=== PATIENT | female | born 1945 | race Caucasian/White ===

== ENCOUNTER 2017-03-30 09:55 | Outpatient (CLI) | payer MEDICARE ==
--- NOTE | 2017-03-30 11:06 | RAD ---
RIGHT SHOULDER THREE VIEWS: Clinical history: Pain. FINDINGS: There is moderate osteoarthritis of the right AC joint. No fracture or dislocation. There is vascula r calcification. IMPRESSION: Osteoarthritis. No acute fracture or dislocation. POS: [facility]
== END 2017-03-30 09:56 | disposition home or self-care (01) ==
LOC: RAD-FRANK 09:55
PROVIDERS: ATTEND Nurse Practitioner Family
DX: M25.511 Pain in right shoulder (principal); M19.011 Primary osteoarthritis, right shoulder

== ENCOUNTER 2017-05-11 14:01 | Inpatient (IN) | payer MEDICARE ==
[2017-05-11] MEDS ORDERED: Pantoprazole 40 MG VIAL ONE (14:44)
[2017-05-11 14:56] LABS: Anion Gap 9 mmol/L (-14-95); Lactate 2.62 mmol/L (0.50-2.20); POC Est. GFR-MDRD-African-Amer Greater than 60 (2-60); POC Estimated GFR-MDRD Greater than 60 (2-60); T. Carbon Dioxide 29.2 mmol/L (1.0-85.0); pH (Venous) 7.311 (7.35-7.45); vO2 Saturation-calc 29.9 % (0.0-100.0)
[2017-05-11] MEDS ORDERED: Pantoprazole 80 MG in Sodium Chloride 0.9% 100 ML IVP SCH (15:00)
[2017-05-11 15:05] LABS: Hematocrit 30.1 % (36.0-47.0); Mean Platelet Volume 7.9 fL (7.4-10.4); PTT 26.5 SEC (22.9-36.1); Prothrombin Time 14.9 SEC (12.0-14.7); Red Blood Cell (RBC) Count 3.02 mill/uL (4.20-5.40)
--- NOTE | 2017-05-11 15:10 | RAD ---
PORTABLE CHEST ONE VIEW: Date: 05-11-17 Time: 2:42 p.m. History: Dyspnea, cough. FINDINGS: Comparison is made with exam of 03-06-17. The heart size is normal. Lungs are expanded without focal areas of consolidation, pneumothorax or pl eural effusions. IMPRESSION: No acute process. POS: [facility]
[2017-05-11 15:19] LABS: ALT (SGPT) Less than 7 U/L (8-55); AST (SGOT) 10 U/L (5-34); Alkaline Phosphatase 47 U/L (40-150); Anion Gap 9 mmol/L (10-20); BUN (Urea Nitrogen) 32 mg/dL (9.8-20.1); Bilirubin, Total 0.3 mg/dL (0.2-1.2); Calc. Creatinine Clearance 0 mL/min (70-130); Carbon Dioxide 27 mmol/L (23-31); Chloride 109 mmol/L (98-107); Estimated GFR-MDRD 86; Globulin 1.6 g/dL (2.4-3.5); Lipase 23 U/L (8-78); Protein, Total 4.4 g/dL (6.0-8.3)
[2017-05-11 15:23] LABS: Band 7 % (5-11); Neutrophil 82 % (42-75); Ovalocytes SLIGHT = 2-5 cells (100X) (0-1/hpf); Polychromasia SLIGHT = 2-3 cells (100X) (0-2/hpf); Troponin I Less than 0.010 ng/mL (< 0.028)
[2017-05-11] MEDS ORDERED: Piperacillin/Tazobactam 3.375 GM in Sodium Chloride 0.9% 100 ML IVPB ONE (17:30)
[2017-05-11] MEDS ORDERED: Propofol 200 MG/20 ML VIAL ONE (18:12)
[2017-05-11] MEDS ORDERED: Succinylcholine Chloride 20 MG/ML 10 ml SYRINGE FS ONE (18:12)
[2017-05-11] MEDS ORDERED: Lidocaine 1% PF 5 ML VIAL ONE (18:12)
--- NOTE | 2017-05-11 18:34 | CON ---
DATE OF CONSULTATION: 05/11/2017 HISTORY OF PRESENT ILLNESS: The patient is a 72-year-old female who was in her normal stat e of health until this morning when she awoke and felt dizzy. She apparently had a syncopal episode and was found down on the floor. She had nausea, but no vomiting. Today, she reports she started pa ssing some dark stools. According to the ER personnel, the patient also had some dark stool and red stool at the same time. The patient had a similar incident in 2014. She was seen and evaluated by Ximena Aguirre whose impression was normocytic anemia. At that time, she underwent an EGD and colonoscopy. EGD showed erosive gastritis and a 5 mm antral ulcer. Biopsies were negative for Helicobacter pylo ri. She also had duodenal biopsies which were normal. The colonoscopy showed severe diverticulosis of the left colon and moderate internal hemorrhoids. PAST MEDICAL HISTORY: Includes hypertension, hypothyroidism, skin cancer, osteoarthritis, and cerebr ovascular accident. PAST SURGICAL HISTORY: Includes appendectomy, bilateral hip replacements, back surgery, hysterectomy , cataract surgery, and endoscopy. SOCIAL HISTORY: She continues to smoke. She does not drink. FAMILY HISTORY: Negative for GI or liver disease. ALLERGIES: No known medical allergies. HOME MEDICATIONS: Include pravastatin 20 mg p.o. at bedtime, lisinopril/hydrochlorothiazide 1 p.o. d aily, Synthroid 75 mcg p.o. daily, hydrocodone 1 p.o. q.8 hours p.r.n., Cymbalta 2 p.o. daily, aspiri n 81 mg p.o. daily, alprazolam p.r.n. REVIEW OF SYSTEMS: Constitutional: No fever or chills, no weight loss. Eyes: No blurred vision or double vision. ENT: No sore throat or earaches. Cardiovascular: No chest pain, no palpitations. Positive for syncope. Pulmonary: No shortness of breath, cough or wheezing. Gastrointestinal: Se e above. : No hematuria or dysuria. Musculoskeletal: Positive for generalized weakness. Negati ve for joint pain. Skin: No rashes. Neurologic: No numbness or seizure activity. PHYSICAL EXAMINATION: VITAL SIGNS: Show a blood pressure 104/87, pulse of 95, respiratory rate 16, temperature she is afeb rile. HEENT: Unremarkable. NECK: Supple. CHEST: Clear. CARDIOVASCULAR: Regular rate and rhythm. ABDOMEN: Soft, nontender, without organomegaly or masses. Bowel sounds are present. RECTAL: Deferred. EXTREMITIES: Normal. NEUROLOGIC: Nonfocal. LABORATORY: Shows a hemoglobin of 9.6, hematocrit of 30.1 with a white blood cell count 23.0, platel et count is 278. Her previous hemoglobin was 13.1 in February. PT is 14.9 with an INR of 1.2. Irina mistries show chloride 109, BUN 32, glucose 114, ALT less than 7, albumin 2.8. ASSESSMENT: 1. Upper gastrointestinal bleed. 2. Syncope secondary to #1. 3. Anemia secondary to gastrointestinal blood loss. 4. History of antral ulcer with gastrointestinal bleed. 5. Osteoarthritis, previously on nonsteroidal anti-inflammatory drugs. 6. History of cerebrovascular accident. RECOMMENDATIONS: 1. PPI. 2. EGD. 3. Serial H&H. 4. Transfuse.
[2017-05-11] MEDS ORDERED: Promethazine HCl 25 MG/ML VIAL SLOW IVP PRN (18:40)
[2017-05-11] MEDS ORDERED: Ondansetron HCl/PF 4 MG/2 ML Vial IVP PRN ×2 (18:40→20:22)
[2017-05-11] MEDS ORDERED: Fentanyl 100 MCG/2 ML VIAL ONE (18:50)
[2017-05-11] MEDS ORDERED: Albuterol Sulfate 2.5 mg/3 ml Neb NEB PRN (18:59)
--- NOTE | 2017-05-11 19:02 | OP ---
PREOPERATIVE DIAGNOSIS: Upper gastrointestinal bleed. PROCEDURE: After informed consent was obtained, she was placed in the left lateral decubitus positio n. Anesthesia was administered per the Anesthesia Department. Forward-viewing endoscope was inserte d into the esophagus under direct visualization with ease where the large amount of blood was noted i n the stomach and the scope was withdrawn, lying in Anesthesia Department to intubate the patient. O nce that was performed, the patient was placed in the left lateral decubitus position and the scope w as inserted into the esophagus under direct visualization with ease and passed to the second portion of the duodenum with ease. Second portion of the duodenum and duodenal bulb were normal. Pylorus wa s normal. In the prepyloric antrum, a large ulcer was noted. In this ulcer where 2 visible vessels. The ulcer was first injected in 4 quadrant fashion with 1:10,000 epinephrine achieving good hemosta sis. Then, the visible vessels were ablated with a 10-Surinamese BICAP electrocautery probe. The full v isualization of the stomach was not achieved secondary to a large amount of blood in the stomach. ASSESSMENT: Large antral ulcer with 2 visible vessels -- status post sclerotherapy and BICAP electro cautery. RECOMMENDATIONS: 1. IV continuous infusion PPI. 2. Clear liquids. 3. Serial H&H.
[2017-05-11 19:04] LABS: Bilirubin Negative (Negative); Blood, Urine Moderate (Negative); Glucose, Urine (Dipstick) Negative (Negative); Ketone, Urine Negative (Negative); Nitrite Negative (Negative); Protein, Urine (Dipstick) Negative (Neg-Trace); Urobilinogen 0.2 mg/dL (0.2-1.0)
[2017-05-11 19:07] LABS: Hyaline Casts/LPF 4-6 HYALINE CAST LPF (0-3 Hyaline); RBC/HPF 0-3 HPF (0-3); WBC/HPF 21-50 HPF (0-3)
[2017-05-11 19:24] LABS: Bacteria/HPF Rare-Few HPF (None Seen); Squamous Epithelial 0-3 HPF (0-3); Transitional Epithelial 0-3 HPF (0-3); Yeast-All Forms None Seen HPF (None Seen)
[2017-05-11] MEDS ORDERED: Ondansetron ODT 4 MG TAB SL PRN (20:22)
[2017-05-11] MEDS ORDERED: Acetaminophen 325 MG TAB PO PRN (20:22)
[2017-05-11] MEDS ORDERED: Pantoprazole 80 MG in Sodium Chloride 0.9% 100 ML IVPB SCH (20:30)
[2017-05-11] MEDS ORDERED: Bisacodyl 5 MG TAB PO PRN (21:52)
[2017-05-11] MEDS ORDERED: Ondansetron ODT 4 MG TAB PO PRN (21:52)
[2017-05-11] MEDS ORDERED: Guaifenesin DM 100-10/5 ML UDCUP PO PRN (21:52)
[2017-05-11] MEDS ORDERED: Docusate 100 MG CAP PO SCH (22:00)
[2017-05-11] MEDS ORDERED: Piperacillin/Tazobactam 3.375 GM in Sodium Chloride 0.9% 100 ML IVPB SCH (22:15)
--- NOTE | 2017-05-11 22:17 | HP ---
PRIMARY CARE PHYSICIAN: Maryjane Vigil PROVIDER SCRIBE CHIEF COMPLAINT: Weakness. HISTORY OF PRESENT ILLNESS: This is a 72-year-old white female with a past medical history of hypert ension, hypothyroidism, previous GI bleed, diverticulosis, internal hemorrhoids and esophageal spasm, who presents to the emergency room with 3-day history of weakness. She just felt kind of bad for th e last 2-3 days, then this morning she started feeling significantly weak right after she took her ba th. She was barely able to stand up. She went took a nap and within about an hour to 2 hour she was not able to stand at all. She crawled across the floor and because she felt like she needed to go t o the bathroom, she was not able to get her pants down, so EMS was called. The patient also reports that over the past 2-3 days she has had burning mid epigastric pain on and off. It was persistent du ring the day today and that she had nausea along with the bowel movement at home. When EMS arrivedsh e was found to be hypotensive. She was given IV fluids and brought to the emergency room. Her blood pressure dropped again in the emergency room, she was given more IV fluids and started on a unit of packed red blood cells. The patient was found to have black and reddish bowel movement in her cloths . Her blood count was also found to be low at 9. It was [address] just [address] Barreto has been co nsulted by the emergency room. The patient was also noted to have an increased white blood cell coun t of 23,000 with a neutrophilic predominance of 82% bands. The patient does have a history of previo us GI bleed when she was taking a bunch of ibuprofen or Advil in the past; however, now she is just o n a daily aspirin for her recent stroke. PAST MEDICAL HISTORY: 1. Hypothyroidism. 2. Previous gastrointestinal bleed. 3. Hypertension. 4. Depression. 5. Esophageal spasm. 6. Diverticulosis. 7. Internal hemorrhoids. 8. Acute CVA in 02/2017. PAST SURGICAL HISTORY: 1. Skin cancer removal from her face. 2. Appendectomy. 3. Orthopedic bilateral hip replacement surgery. 4. Back surgery. 5. Hysterectomy. SOCIAL HISTORY: The patient previously drank heavily liquor, but has not drank much at all in the ia st 7-8 years. She smokes 1/2 pack per day and has done so for the last 40 years. No illicit drug us e. ALLERGIES: 1. DEMEROL. 2. SULFA causes lip and tongue swelling. 3. HONEY BEE VENOM. CURRENT MEDICATIONS: 1. Pravastatin 20 mg daily. 2. Aspirin 81 mg daily. 3. Lisinopril/hydrochlorothiazide 10/12.5 mg daily. 4. Synthroid 25 mcg daily. 5. Cymbalta 30 mg twice a day. 6. Xanax 0.25 mg twice a day. 7. Tylenol with codeine as needed for pain. PAST PSYCHIATRIC HISTORY: Depression. FAMILY HISTORY: Testicular cancer in her father and bleeding problem in her mother when she was on a nti-arthritic medications. REVIEW OF SYSTEMS: Constitutional: No fevers, no chills, no weight loss. Eyes: No double vision or blurred vision. E NT: She has had some congestion, drainage, and sore throat, was on CPAP for this over a week ago; ho wever, she has had persistent congestion and drainage. Cardiovascular: No chest pain, no palpitatio ns or racing heart. Pulmonary: She has some cough and little coughing and wheezing. This is worse with her recent URI, but it is fairly common for her with her smoking. Gastrointestinal: See HPI. No vomiting, no hematemesis. Genitourinary: No dysuria or hematuria. Musculoskeletal: No generali zed muscle aches. She does have some chronic right shoulder pain and some chronic low back pain and SI joint pain. Skin: No rashes or other lesions noted. Neurologic: No numbness, tingling or focal weakness. She did have some weakness of her left arm and numbness with her previous stroke; however , those symptoms was almost completely resolved. PHYSICAL EXAMINATION: VITAL SIGNS: Blood pressure initially 140/113 on presentation, it did drop down to 84/59, during the time she was in the ER has jumped back up to 116/60 with blood and fluid transfusion. Pulse has bee n running in the high 90s to low 100s, temperature 97.4, respirations 20, O2 sat 97% on room air. GENERAL: This is a well-developed, obese white female in no acute distress, she just looks pale. HEENT: Pupils equal, round, and reactive to light. Oropharynx is clear, without lesions, erythema o r exudate. NECK: Supple, no lymphadenopathy, no thyroid nodules or enlargement, no JVD. HEART: Regular rate and rhythm, minimally tachycardic at this time. No murmurs, rubs or gallops. LUNGS: Clear to auscultation bilaterally, no wheezes, crackles or rhonchi. ABDOMEN: Soft, nontender to palpation, normoactive bowel sounds, no hepatosplenomegaly or other mass es. EXTREMITIES: No clubbing, cyanosis or edema. SKIN: No rashes or other lesions noted. NEUROLOGIC: She has intact strength and reflexes in all extremities and has no facial droop. LABORATORY DATA: CBC initially with a white blood cell count of 23,000, hemoglobin of 9.6, hematocri t 30.1, MCV of 99.6, neutrophils are 82%, and bands are 7%. Coagulation profile with PT of 14.9, the rest is normal. Venous blood gas showed a pH of 7.3 and a complete metabolic panel was notable for a chloride of 109, anion gap low at 9 and BUN of 32, creatinine was normal at 0.67, glucose was 114, albumin was low at 2.8. The remainder of her liver function tests were normal. Cardiac marker set n egative x1, venous lactate was elevated at 2.62. X-ray: I did review the chest x-ray done in the emergency room along with the radiologist's report. There is a normal cardiac silhouette, no infiltrates in the lungs. No acute cardiopulmonary process visualized. ASSESSMENT AND PLAN: 1. Sepsis with hypotension. The patient has elevated white cell count and also has tachycardia and hypotension. This is concerning for possibility of infection. Thus far we did have an etiology, alt courtney we do not have a urine back yet, we will have to cath her to get one if she cannot urine force. The elevated white count might also be a stress reaction due to a GI bleed and hypotension be solel y due to that. At this time, we will investigate for and treat both causes. We will start her on Zo syn and vancomycin here in the emergency room, draw blood and urine cultures before that goes in. We will also check a urinalysis for urinary tract infection. Patient will continue getting IV fluids a nd has gotten blood and we will no more blood as needed. We will check serial H&Hs. Dr. Barreto has se en her and is planning on doing an EGD. 2. Gastrointestinal bleed. We will put on Protonix drip. We will get an EGD per Dr. Barreto. We will also transpose blood as needed. 3. Tobacco use with likely early chronic obstructive pulmonary disease and will give nebs as needed. Recommend tobacco cessation. 4. Gastrointestinal prophylaxis. Patient is already on Protonix. 5. Deep venous thrombosis prophylaxis. Put the patient on sequential compression devices and TEDs w hile in bed. 6. Hypertension. The patient is currently hypotensive. We will keep an eye on her blood pressure, and once she is fluid repleted, she may become hypertensive at which point we can resume her home blo od pressure medications. 7. Chronic pain. We will resume patient's Tylenol with codeine. CODE STATUS: I did discuss with the patient. She is a FULL CODE. Should she be incapacitated, her sons, Nicolás and Amilcar would be her medical power of real estate attorney.
[2017-05-11 23:28] VITALS: BMI 29.0
[2017-05-11] MEDS: Sodium Chloride 0.9% 1,000 ML IV SCH (23:43)
[2017-05-12] MEDS: Pantoprazole 80 MG in Sodium Chloride 0.9% 100 ML IVP SCH ×3 (00:09→21:08)
[2017-05-12] MEDS ORDERED: Piperacillin/Tazobactam 3.375 GM in Sodium Chloride 0.9% 100 ML IVPB SCH (04:00)
[2017-05-12 04:50] LABS: #Basophils 0.1 thou/uL (0.0-0.2); #Monocytes 0.7 thou/uL (0.11-0.59); #Neutrophils 6.5 thou/uL (1.40-6.50); %Basophils 0.8 % (0.0-1.0); %Eosinophils 0.4 % (0.0-10.0); %Lymphocytes 29.2 % (21.0-51.0); %Monocytes 6.8 % (0.0-10.0); Hematocrit 28.4 % (36.0-47.0); Mean Platelet Volume 8.2 fL (7.4-10.4); Red Blood Cell (RBC) Count 2.87 mill/uL (4.20-5.40); White Blood Cell (WBC) Count 10.4 thou/uL (4.8-10.8)
[2017-05-12] MEDS ORDERED: Vancomycin HCl 1 GM in Premix Bag 1 BAG IVPB SCH (05:00)
[2017-05-12 05:01] LABS: Anion Gap 8 mmol/L (10-20); BUN (Urea Nitrogen) 38 mg/dL (9.8-20.1); Calc. Creatinine Clearance 92 mL/min (70-130); Calcium 8.3 mg/dL (7.8-10.44); Carbon Dioxide 23 mmol/L (23-31); Chloride 113 mmol/L (98-107); Estimated GFR-MDRD Greater than 90
[2017-05-12] MEDS: Piperacillin/Tazobactam 3.375 GM in Sodium Chloride 0.9% 100 ML IVPB SCH ×2 (06:09→11:44)
[2017-05-12] MEDS: Docusate 100 MG CAP PO SCH ×2 (08:03→21:03)
[2017-05-12] MEDS: Sodium Chloride 0.9% 1,000 ML IV SCH ×2 (11:44→11:52)
[2017-05-12] MEDS ORDERED: cefTRIAXone\\ROCEPHIN 1 GM in Sodium Chloride 0.9% 100 ML IVPB SCH (12:00)
--- NOTE | 2017-05-12 12:41 | PQF ---
DATE: 05-12-17 ATTN: DR. JOSI COOK Please exercise your independent, professional judgment in responding to the clarification form. Clinical indicators are provided on the bottom of this form for your review Please check appropriate box(s): [ *] Acute blood loss anemia [ ] Post-op anemia related to acute blood loss [ ] Chronic Anemia: [ ] Blood loss [ ] Hemolytic [ ] Simple [ ] Due to Vitamin B12 Deficiency [ ] Other [ ] Anemia of Chronic Disease (please specify) [ ] Other diagnosis [ ] Unable to determine In addition, please specify: Present on Admission (POA): [ ] Yes [ ] No [ ] Unable to determine For continuity of documentation, please document condition throughout progress notes and discharge summary. Thank You. CLINICAL INDICATORS - SIGNS / SYMPTOMS / LABS ER CHIEF COMPLAINT: HYPOTENSION ER DOCUMENTATION: 83/56, 93/56, 84/59, 83/63 ER DIAGNOSIS: GI BLEED CONSULT NOTE DR. YA 05-11-17: ANEMIA SECONDARY TO GI BLOOD LOSS HEMOGLOBIN 05-11-17: 9.6 HEMATOCRIT: 05-11-17: 30.1 05-12-17: 9.2 05-12-17: 28.4 RISK FACTORS: ER DIAGNOSIS: GI BLEED EGD 05-11-17 TREATMENTS: CONSULT NOTE DR. YA 05-11-17: PPI, EGD, SERIAL H&H, TRANSFUSE BLOOD PRODUCTS 05-11-17: 1 UNIT OF PRBC This form is maintained as a part of the permanent medical record) 2014 [facility]. All Rights Reserved [email or web address] Office: [phone] [facility]
[2017-05-12 12:52] LABS: Hematocrit 29.9 % (36.0-47.0)
[2017-05-12 13:11] LABS: Anion Gap 11 mmol/L (10-20); BUN (Urea Nitrogen) 28 mg/dL (9.8-20.1); Calc. Creatinine Clearance 80 mL/min (70-130); Calcium 8.3 mg/dL (7.8-10.44); Carbon Dioxide 22 mmol/L (23-31); Chloride 111 mmol/L (98-107); Estimated GFR-MDRD 80
[2017-05-12] MEDS: cefTRIAXone\\ROCEPHIN 1 GM, Syringe 0.4 ML in Sterile Water 9.6 ML SLOW IVP SCH (13:24)
--- NOTE | 2017-05-12 14:38 | PDOC.PN ---
- Subjective Encounter Start Date: 05/12/17 Encounter Start Time: 14:38 pt had bloody bm no n/v no f/c - Objective Resuscitation Status: Resuscitation Status FULL:Full Resuscitation MAR Reviewed: Yes Vital Signs & Weight: Vital Signs (12 hours) Temp Pulse Resp BP BP BP Pulse Ox 05/12/17 11:15 112/66 120/69 05/12/17 11:12 98.7 F 111 H 16 112/66 96 05/12/17 08:00 99.1 F 111 H 18 95 05/12/17 07:28 99.1 F 111 H 18 115/74 100 05/12/17 03:19 99.2 F 106 H 18 126/66 97 Weight Weight 160 lb I&O: 05/11/17 05/12/17 05/13/17 06:59 06:59 06:59 Intake Total 2590 Output Total 1304 Balance 1286 Result Diagrams: 05/12/17 12:43 05/12/17 12:43 Phys Exam - Physical Examination Constitutional: NAD HEENT: PERRLA Neck: no JVD Respiratory: no rales Cardiovascular: no significant murmur Gastrointestinal: non-tender Musculoskeletal: pulses present Neurological: normal sensation Psychiatric: A&O x 3 Dx/Plan (1) UTI (urinary tract infection) Status: Acute (2) Physical deconditioning Code(s): R53.81 - OTHER MALAISE Status: Acute (3) HTN (hypertension) Code(s): I10 - ESSENTIAL (PRIMARY) HYPERTENSION Status: Acute (4) CVA (cerebral vascular accident) Code(s): I63.9 - CEREBRAL INFARCTION, UNSPECIFIED Status: Acute Qualifiers: Laterality of affected vessel: right (5) GI bleed Code(s): K92.2 - GASTROINTESTINAL HEMORRHAGE, UNSPECIFIED Status: Acute (6) Hypothyroidism Code(s): E03.9 - HYPOTHYROIDISM, UNSPECIFIED Status: Chronic - Plan * iv protonix * monitor h/h * transfuse as needed * cont abx, monitor urine cul * gi input appreciated
--- NOTE | 2017-05-12 15:22 | PQF ---
DATE: 05-12-17 ATTN: DR. JOSI MENESES Please exercise your independent, professional judgment in responding to the clarification form. Clinical indicators are provided on the bottom of this form for your review Please check appropriate box(s): [ ] Upper Gastrointestinal Ulcer: Acuity: [ ] Acute [ ] Chronic [ ] Hemorrhage -or-[ ] No Hemorrhage Type:[ ] Gastric Ulcer pt has gastric ulcer (antral) which is acute [ ] Esophageal Ulcer [ ] Duodenal, Duodenum [ ] Other location [ ] Any related or contributing disease(s) Alcohol or drugs: [ ] Other diagnosis [ ] Unable to determine In addition, please specify: Present on Admission (POA): [ * ] Yes [ ] No [ ] Unable to determine For continuity of documentation, please document condition throughout progress notes and discharge summary. Thank You. CLINICAL INDICATORS - SIGNS / SYMPTOMS / LABS H&P: PATIENT ALSO REPORTS THAT OVER THE PAST 2-3 DAYS SHE HAS HAD BURNING MID EPIGASTRIC PAIN OFF AND ON. SHE HAS HAD NAUSEA, PT WAS FOUND TO HAVE BLACK AND REDDISH BOWEL MOVEMENTS IN HER CLOTHS. PREVIOUS GI BLEED OPERATIVE NOTE 05-11-17: IN THE PREPYLORIC ANTRUM, A LARGE ULCER WAS NOTED. IN THIS ULCER WHERE 2 VISIBLE VESSELS. THE ULCER WAS FIRST INJECTED IN 4 QUADRANT FASHION WITH 1:10,000 EPI ACHIEVING GOOF HEMOSTASIS. THEN THE VISIBLE VESSELS WERE ABLATED WITH A 10-KAZAKH BICAP ELECTROCAUTERY PROBE. RISK FACTORS: H&P: PATIENT ALSO REPORTS THAT OVER THE PAST 2-3 DAYS SHE HAS HAD BURNING MID EPIGASTRIC PAIN OFF AND ON. SHE HAS HAD NAUSEA, PT WAS FOUND TO HAVE BLACK AND REDDISH BOWEL MOVEMENTS IN HER CLOTHS. PREVIOUS GI BLEED H&P: PATIENT PREVIOUSLY DRANK HEAVILY LIQUOR, BUT HAS NT DRANK MUCH AT ALL IN THE LAST 7-8 YRS. TREATMENT: EGD 05-11-[address] YA 05-11-17: PPI, EGD, SERIAL H&H, TRANSFUSE (This form is maintained as a part of the permanent medical record) 2014 [employer]. All Rights Reserved [email or web address] Office: [phone] [facility]
[2017-05-12] MEDS: Acetaminophen 325 MG TAB PO PRN ×2 (18:23→22:25)
[2017-05-12] MEDS: Cepastat Lozenges 1 LOZ PO PRN (18:23)
--- NOTE | 2017-05-12 18:53 | CON ---
DATE OF CONSULTATION: 05/12/2016 SERVICE: Pulmonary Medicine. REASON FOR CONSULTATION: [facility] patient. HISTORY OF PRESENT ILLNESS: The patient is a 72-year-old white female with past medical history sign ificant for peptic ulcer disease. She was on PPI for a period of time. It was discontinued at some point in the past and she does not exactly remember why. Either way, she presented to the hospital w ith some abdominal discomfort, and black tarry sticky stools. Her hemoglobin at that time was 9.6. She currently denies any fevers, chills, nausea, vomiting or chest discomfort. She has got chronic p ain and takes some Tylenol with some narcotic attached to it. She is not currently using any nonster oidal anti-inflammatory drugs based on what she suggests. PAST MEDICAL HISTORY: 1. Peptic ulcer disease. 2. Chronic obstructive pulmonary disease, possible. 3. Hypothyroidism. 4. Hypertension. 5. Major depressive disorder. 6. Diverticulosis. 7. Internal hemorrhoids. 8. History of CVA in 2017. 9. Esophageal spasms. PAST SURGICAL HISTORY: 1. Excision of skin cancer. 2. Appendectomy. 3. Bilateral hip replacement, total. 4. Hysterectomy. 5. Back surgery. SOCIAL HISTORY: She has a history of heavy alcohol use and has a greater than [id number] history o f smoking. That being said, she no longer uses either. She denies any history of illicit drugs. Archana rodriguez has no exposure to chemicals, dust, asbestos or tuberculosis. FAMILY HISTORY: Noncontributory. ALLERGIES: DEMEROL, SULFA, HONEY BEE VENOM. MEDICATIONS: List for inpatient medications were reviewed. No specific updates were made at this ti me. REVIEW OF SYSTEMS: General, head, ears, eyes, nose, throat, cardiovascular, respiratory, GI, , mus culoskeletal, neurologic and skin is negative except as mentioned in the HPI. PHYSICAL EXAMINATION: VITAL SIGNS: Afebrile. Pulse 111, blood pressure 112/66, respirations 16, saturation 96% on 2 liter s nasal cannula. GENERAL: Patient is awake, alert, in no apparent distress. LUNGS: Excellent air entry with no prolonged expiratory phase, wheezing, rhonchi or crackles. HEART: Normal rate, regular. ABDOMEN: Soft, nontender, nondistended, bowel sounds positive. MUSCULOSKELETAL: No cyanosis or clubbing. No pitting in the bilateral lower extremities. NEUROLOGIC: Grossly nonfocal. LABORATORY: WBC 10.4, hemoglobin 9.9 and stable. Platelets 247,000. INR 1.2. PH 7.31, pCO2 of 54. Basic metabolic profile is essentially unremarkable. Previous liver function studies were also neg ative. Cardiac enzymes negative. Urinalysis is unremarkable. Blood cultures x2 are unremarkable. ASSESSMENT: 1. Acute blood loss anemia. 2. Upper gastrointestinal bleed secondary to peptic ulcer disease, status post intervention. 3. Chronic obstructive pulmonary disease, suspected without acute exacerbation. PLAN: The patient is currently hemodynamically stable. She does have a high risk lesion for rebleed. If b y tomorrow, she remains stable, she can transition out of the ICU to the medical unit. Pulmonary rob l continue to follow while she remains in this location. In the outpatient setting, for dyspnea limi ts her activity, an outpatient workup for COPD should be considered.
--- NOTE | 2017-05-12 19:25 | PRG ---
DATE OF SERVICE: 05/12/2017 SUBJECTIVE: Ms. Vanegas has had multiple black stools today. She has had diarrhea with this. She cancino s had no abdominal pain or nausea or vomiting, tolerating clear liquids well. OBJECTIVE: VITAL SIGNS: Temperature 98.2, pulse 106, blood pressure 137/84. GENERAL: She is in no acute distress, alert and oriented x3. LUNGS: Clear to auscultation bilaterally. CARDIOVASCULAR: Heart tachycardic S1, S2. ABDOMEN: Soft, nontender, nondistended. Bowel sounds are present. EXTREMITIES: No lower extremity edema. LABORATORY DATA: Her hemoglobin is 9.9 today. This is stable from yesterday afternoon. Creatinine 0.71. IMPRESSION: 1. Gastrointestinal bleed secondary to large antral ulcer, status post cautery of visible vessels. 2. Anemia of acute blood loss. Her hemoglobin has stabilized from yesterday to today. She has cont inued to pass old blood from the colon. RECOMMENDATIONS: 1. Continue proton pump inhibitor drip today. If her hemoglobin remains stable tomorrow, then she c an be changed to oral pantoprazole twice daily for 2 weeks and then back off to once daily. As the s ource for her ulcer has not been identified at this point, then she will need to remain on proton pum p inhibitor indefinitely. Her biopsies in 2014 were negative for Helicobacter pylori. A stool sampl e can be sent for Helicobacter pylori antigen to retest this. She denies NSAID use. 2. She was advised to stop smoking as this is an independent risk factor for gastric ulcer. 3. Followup endoscopy should be performed in 4-6 weeks to verify healing of the ulcer given the size of the focal gastric ulcer. 4. If her hemoglobin is stable tomorrow, advance her diet.
[2017-05-12] MEDS: ALPRAZolam 0.25 MG TAB PO PRN (20:58)
[2017-05-12 22:22] LABS: Hematocrit 26.5 % (36.0-47.0)
[2017-05-13 04:45] LABS: #Basophils 0.1 thou/uL (0.0-0.2); #Eosinphils 0.1 thou/uL (0.0-0.7); #Monocytes 0.5 thou/uL (0.11-0.59); #Neutrophils 4.8 thou/uL (1.40-6.50); %Basophils 1.1 % (0.0-1.0); %Eosinophils 1.1 % (0.0-10.0); %Lymphocytes 27.2 % (21.0-51.0); %Monocytes 6.1 % (0.0-10.0); Hematocrit 26.3 % (36.0-47.0); Hematocrit 26.6 % (36.0-47.0); Mean Platelet Volume 7.9 fL (7.4-10.4); Red Blood Cell (RBC) Count 2.67 mill/uL (4.20-5.40); White Blood Cell (WBC) Count 7.4 thou/uL (4.8-10.8)
[2017-05-13 04:56] LABS: Vancomycin, Trough 4.3 ug/mL
[2017-05-13] MEDS: Levothyroxine Sodium 25 MCG TAB PO SCH (06:29)
[2017-05-13] MEDS: Sodium Chloride 0.9% 1,000 ML IV SCH (06:29)
[2017-05-13] MEDS: Ondansetron HCl/PF 4 MG/2 ML Vial IVP PRN ×2 (06:35→18:33)
[2017-05-13] MEDS: Docusate 100 MG CAP PO SCH ×2 (08:52→20:52)
[2017-05-13] MEDS: Pantoprazole 40 MG VIAL IVP SCH ×2 (08:54→20:53)
--- NOTE | 2017-05-13 10:05 | PRG ---
DATE OF SERVICE: 05/13/2017 SERVICE: Pulmonary Medicine. INTERVAL HISTORY: The patient is doing fairly well from a respiratory standpoint. She is continuing to have some diarrhea, but it is clearing. She denies any current fevers, chills, nausea, or vomiti ng. Otherwise, she is returning to her usual state of health. She is asking to go home today, but I did explain to her that she is at high risk for re-bleed. She has not quite cleared her stools yet. It would be better for her if she were monitored in the hospital for at least 1 more day. PHYSICAL EXAMINATION: VITAL SIGNS: Afebrile, pulse 100, blood pressure 135/82, respirations 15, saturation 98% on room air . GENERAL: Patient is awake, alert, in no apparent distress. LUNGS: Decent air entry with no prolonged expiratory phase, wheezing, rhonchi, or crackles. HEART: Normal rate, regular. ABDOMEN: Soft, nontender, nondistended. Bowel sounds positive. MUSCULOSKELETAL: No cyanosis or clubbing. No pitting in the bilateral lower extremities. NEUROLOGIC: Grossly nonfocal. LABORATORY DATA: WBC 8.7, stable for the last 3 draws since last night. CBC is otherwise unremarkab le. Basic metabolic profile IS completely unremarkable with a BUN that is improving and a creatinine that is stable. Bicarbonate is 22 and chloride has improved to 111. Blood cultures x2 are unremark able. ASSESSMENT: 1. Acute blood loss anemia, stable. 2. Upper gastrointestinal bleed secondary to peptic ulcer disease, status post intervention. 3. Chronic obstructive pulmonary disease, suspected without acute exacerbation. PLAN: The patient remains hemodynamically stable. Her hemoglobins have been stable overnight. As s [facility], we can consider her for transition out of the ICU to the regular floor. Pulmonary will continue to follow if she remains in this location. Consider COPD evaluation in the outpatient setting if linda rodriguez does have some findings consistent with this.
[2017-05-13] MEDS: cefTRIAXone\\ROCEPHIN 1 GM, Syringe 0.4 ML in Sterile Water 9.6 ML SLOW IVP SCH (11:51)
--- NOTE | 2017-05-13 12:41 | PDOC.PN ---
- Subjective Encounter Start Date: 05/13/17 Encounter Start Time: 12:40 Patient seen and examined. No new complaints. No overnight events - Objective Resuscitation Status: Resuscitation Status FULL:Full Resuscitation MAR Reviewed: Yes Vital Signs & Weight: Vital Signs (12 hours) Temp Pulse Resp BP BP Pulse Ox 05/13/17 11:46 98.5 F 105 H 20 144/80 H 99 05/13/17 09:25 150/78 H 05/13/17 08:00 98.1 F 100 15 98 05/13/17 07:54 98.1 F 100 15 135/82 95 05/13/17 03:50 98.3 F 104 H 22 H 122/69 95 Weight Weight 160 lb 6.4 oz I&O: 05/12/17 05/13/17 05/14/17 06:59 06:59 06:59 Intake Total 2590 3100 Output Total 1304 2350 Balance 1286 750 Result Diagrams: 05/13/17 04:16 05/12/17 12:43 Phys Exam - Physical Examination Constitutional: NAD HEENT: PERRLA Neck: no JVD Respiratory: no rales Cardiovascular: no significant murmur Gastrointestinal: non-tender Musculoskeletal: pulses present Neurological: moves all 4 limbs Psychiatric: A&O x 3 Dx/Plan (1) UTI (urinary tract infection) Status: Acute (2) Physical deconditioning Code(s): R53.81 - OTHER MALAISE Status: Acute (3) HTN (hypertension) Code(s): I10 - ESSENTIAL (PRIMARY) HYPERTENSION Status: Acute (4) CVA (cerebral vascular accident) Code(s): I63.9 - CEREBRAL INFARCTION, UNSPECIFIED Status: Acute Qualifiers: Laterality of affected vessel: right (5) GI bleed Code(s): K92.2 - GASTROINTESTINAL HEMORRHAGE, UNSPECIFIED Status: Acute (6) Hypothyroidism Code(s): E03.9 - HYPOTHYROIDISM, UNSPECIFIED Status: Chronic (7) Diarrhea Code(s): R19.7 - DIARRHEA, UNSPECIFIED Status: Acute - Plan * check stool for c diff * monitor hh * advance diet per gi
[2017-05-13] MEDS: Cepastat Lozenges 1 LOZ PO PRN (15:37)
--- NOTE | 2017-05-13 20:55 | PRG ---
DATE OF SERVICE: 05/13/2017 SUBJECTIVE: She is tolerating a diet well today; however, she has had some nausea. Her diarrhea is better today with 4 or 5 stools today. She has had no further overt bleeding. PHYSICAL EXAMINATION: VITAL SIGNS: Temperature 98.5, pulse 105, blood pressure 144/80. GENERAL: She is in no acute distress, alert and oriented x3. LUNGS: Clear to auscultation bilaterally. HEART: Regular rate and rhythm to mildly tachycardic. ABDOMEN: Soft, nontender, nondistended. Bowel sounds are present. EXTREMITIES: No lower extremity edema. LABORATORY DATA: Hemoglobin is 10.3 today. IMPRESSION: 1. Gastrointestinal bleed secondary to a large antral ulcer, status post cautery of visible vessels. 2. Anemia of acute blood loss, improved. She does not have ongoing overt bleeding now. 3. Diarrhea. Clostridium difficile toxin was negative. Her diarrhea is better today than yesterday . RECOMMENDATIONS: 1. Pantoprazole 40 mg twice daily for 2 weeks, then come back to once daily indefinitely. She shoul d remain on proton pump inhibitor indefinitely at this point given the complicated ulcer and lack of obvious source. She has been on 81 mg aspirin and she smokes which may be the primary source; kelechi r, she may need to remain on the aspirin due to a history of TIA. It should be okay to restart the a spirin tomorrow. 2. Restart aspirin 81 mg tomorrow if deemed necessary by the primary service. It is okay to restart this from a GI perspective if the cerebrovascular, cardiovascular indications are significant. 3. Anticipate discharge home tomorrow. I will sign off for now. Please call if GI can be of assist great.
[2017-05-13] MEDS: ALPRAZolam 0.25 MG TAB PO PRN (21:12)
[2017-05-13] MEDS: Acetaminophen 325 MG TAB PO PRN (22:14)
[2017-05-13 22:15] LABS: Hematocrit 26.9 % (36.0-47.0)
[2017-05-14 04:24] LABS: #Basophils 0.1 thou/uL (0.0-0.2); #Eosinphils 0.1 thou/uL (0.0-0.7); #Lymphocytes 2.1 thou/uL (1.20-3.40); #Monocytes 0.6 thou/uL (0.11-0.59); #Neutrophils 4.2 thou/uL (1.40-6.50); %Basophils 1.1 % (0.0-1.0); %Eosinophils 1.1 % (0.0-10.0); %Lymphocytes 30.2 % (21.0-51.0); %Monocytes 8.1 % (0.0-10.0); Hematocrit 26.6 % (36.0-47.0); Mean Platelet Volume 7.6 fL (7.4-10.4); Red Blood Cell (RBC) Count 2.71 mill/uL (4.20-5.40)
[2017-05-14 04:39] LABS: Anion Gap 9 mmol/L (10-20); BUN (Urea Nitrogen) 5 mg/dL (9.8-20.1); BUN/Creatinine Ratio 7.81; Calc. Creatinine Clearance 89 mL/min (70-130); Calcium 8.4 mg/dL (7.8-10.44); Carbon Dioxide 28 mmol/L (23-31); Chloride 108 mmol/L (98-107); Estimated GFR-MDRD Greater than 90; Phosphorus 2.9 mg/dL (2.3-4.7)
[2017-05-14] MEDS ORDERED: Potassium Chloride 20 MEQ TAB PO SCH ×2 (05:00→09:00)
[2017-05-14] MEDS: Levothyroxine Sodium 25 MCG TAB PO SCH (05:29)
[2017-05-14] MEDS: Acetaminophen 325 MG TAB PO PRN (06:06)
--- NOTE | 2017-05-14 08:05 | PDOC.PN ---
- Subjective Encounter Start Date: 05/14/17 Encounter Start Time: 08:03 Ms. Vanegas was seen today in follow-up of GI bleed. She says she feels much better and wants to go home. - Objective Resuscitation Status: Resuscitation Status FULL:Full Resuscitation MAR Reviewed: Yes Vital Signs & Weight: Vital Signs (12 hours) Temp Pulse Resp BP Pulse Ox 05/14/17 04:00 98.2 F 102 H 18 133/74 93 L 05/14/17 00:58 98.4 F 109 H 18 125/82 95 Weight Weight 160 lb 0.008 oz I&O: 05/13/17 05/14/17 05/15/17 06:59 06:59 06:59 Intake Total 3100 700 Output Total 2350 Balance 750 700 Result Diagrams: 05/14/17 04:11 05/14/17 04:11 Phys Exam - Physical Examination HEENT: PERRLA Respiratory: no wheezing, no rales, no rhonchi, clear to auscultation bilateral Cardiovascular: RRR, no significant murmur Gastrointestinal: soft, non-tender, positive bowel sounds Musculoskeletal: no edema Dx/Plan (1) Antral ulcer Code(s): K25.9 - GASTRIC ULCER, UNSP ACUTE OR CHRONIC, W/O HEMOR OR PERF Status: Acute (2) Acute blood loss anemia Code(s): D62 - ACUTE POSTHEMORRHAGIC ANEMIA Status: Acute (3) Tobacco abuse Code(s): Z72.0 - TOBACCO USE Status: Acute (4) HTN (hypertension) Code(s): I10 - ESSENTIAL (PRIMARY) HYPERTENSION Status: Acute (5) CVA (cerebral vascular accident) Code(s): I63.9 - CEREBRAL INFARCTION, UNSPECIFIED Status: Acute Qualifiers: Laterality of affected vessel: right (6) GI bleed Code(s): K92.2 - GASTROINTESTINAL HEMORRHAGE, UNSPECIFIED Status: Acute - Plan * Antral Ulcer with acute blood loss- her H&H has been stable * Continue Protonix twice a day * Tobacco abuse- discussed smoking cessation and some skills to help maintain abstinence. She plans to try the patch * HTN- re-start blood pressure medcation once blood pressure is SBP 130 or higher * CVA- recent- can re-start aspirin today * Stable for discharge home.
[2017-05-14 09:02] VITALS: BP 116/72; TEMP 98.4
[2017-05-14] MEDS: Docusate 100 MG CAP PO SCH (09:07)
[2017-05-14] MEDS: cefTRIAXone\\ROCEPHIN 1 GM, Syringe 0.4 ML in Sterile Water 9.6 ML SLOW IVP SCH (09:07)
--- NOTE | 2017-05-14 12:39 | DIS ---
PRIMARY CARE PHYSICIAN: Maryjane Vigil DATE OF ADMISSION: 05/11/2017 DATE OF DISCHARGE: 05/14/2017 DISCHARGE DISPOSITION: Home. PRIMARY DISCHARGE DIAGNOSES: 1. Antral ulcer with a gastrointestinal bleed. 2. Acute blood loss anemia. 3. Tobacco abuse. 4. Hypertension. 5. History of cerebrovascular accident. 6. Internal hemorrhoids. 7. History of diverticulosis. 8. Esophageal spasms. 9. Depression. DISCHARGE MEDICATIONS: Protonix 40 mg twice a day. The patient can resume aspirin 81 mg daily. Anand ax 0.25 mg twice a day, Cymbalta 60 mg daily, [place]bury 10/325 one tablet q.8h. as needed, levothyroxine 75 mcg daily, lisinopril/hydrochlorothiazide 10/12.5 one tablet daily and pravastatin 20 mg at bedtim e. PROCEDURES DONE DURING ADMISSION: The patient had an upper endoscopy which revealed the presence of a large antral ulcer with 2 visible vessels and this was status post sclerotherapy and electrocautery . CODE STATUS: Full code. ALLERGIES: MEPERIDINE, SULFA, BEE HONEY VENOM. HOSPITAL COURSE: Ms. Vanegas is a pleasant 72-year-old female who presented to the emergency room wit h generalized weakness. She was found to have an acute drop in her hemoglobin from 13 down to 8. Sh e was transfused a unit of blood. She was seen by Gastroenterology. She underwent upper endoscopy a nd it was discovered that she had a large antral ulcer which required electrocautery. She was monito red in the hospital to ensure the stability of her hemoglobin. She had been taken off of her aspirin briefly; however, due to her acute stroke, which was only recently diagnosed in February, it was fe lt that it was safe for her to go back on the baby aspirin daily. She has a history of smoking of ab out a third pack of cigarettes a day. I did briefly counseled the patient on smoking cessation. I o ffered her some suggestions to help sustain abstinence and the patient plans to try the nicotine patc h. Her potassium was slightly low at the time of discharge. This was likely due to several bouts of diarrhea that she had prior to discharge. It was orally replaced in the hospital, and she is to have her potassium rechecked by Maryjane Vigil in about 2 days in followup.
--- NOTE | 2017-05-17 12:31 | PQF ---
JOSE ENRIQUE YAO RYAN ANDREW MD [id number] [facility]- B06 [id number] CLINICAL DOCUMENTATION CLARIFICATION FORM: POST DISCHARGE Addendum to original discharge summary date: ____ Late entry note date: __ JOSE ENRIQUE YAO [id number] RAMBO DÍAZ MD YOUR INPUT IS NEEDED TO CORRECTLY CODE A DIAGNOSIS FOR YOUR PATIENT. DATE: 05/17/2017 ATTN: DR. DÍAZ Please exercise your independent, professional judgment in responding to the clarification form. Clinical indicators are provided on the bottom of this form for your review Please check appropriate box(s) to clarify if the following diagnosis has been ruled in our ruled out: SEPSIS (CDI/Coding list diagnosis here) [ ] Ruled in diagnosis [ ] Continue to treat [ ] Resolved [ X ] Ruled out diagnosis [ ] Cannot rule out diagnosis [ ] Other diagnosis [ ] Unable to determine In addition, please specify: Present on Admission (POA): [ ] Yes [ ] No [ ] Unable to determine For continuity of documentation, please document condition throughout progress notes and discharge summary. Thank You. CLINICAL INDICATORS - SIGNS / SYMPTOMS / LABS H&P - SEPSIS WITH HYPOTENSION ELEVATED WBC, TACHYCARDIA "THE ELEVATED WHITE COUNT MIGHT ALSO BE STRESS REACTION DUE TO A GI BLEED" PN - UTI DS - ULCER WITH GI BLEED RISK FACTORS ULCER WITH GI BLEED UTI TREATMENTS ZOSYN AND VANCOMYCIN MONITOR URINE CULTURE (This form is maintained as a part of the permanent medical record) 2014 [employer]. All Rights Reserved Citlali Barber, [facility], [facility]ICAL CENTERKhai [email or web address] [phone] ELANA
== END 2017-05-14 11:04 | disposition home or self-care (01) | DRG 378 ==
LOC: ERS 14:01 → SDC 17:41 → IMCU/EMU 17:55 → T4-A 05-13 12:15
PROVIDERS: ADMIT Emergency Medicine; ATTEND Emergency Medicine
PROC: 0W3P8ZZ Control Bleeding in Gastrointestinal Tract, Via Natural or Artificial Opening Endoscopic (ICD-10-PCS; principal; 2017-05-11)
DX: K25.4 Chronic or unspecified gastric ulcer with hemorrhage (principal); D62 Acute posthemorrhagic anemia; J44.9 Chronic obstructive pulmonary disease, unspecified; N39.0 Urinary tract infection, site not specified; F17.210 Nicotine dependence, cigarettes, uncomplicated; I10 Essential (primary) hypertension; G89.29 Other chronic pain; R19.7 Diarrhea, unspecified; Z86.73 Personal history of transient ischemic attack (TIA), and cerebral infarction without residual deficits; K64.8 Other hemorrhoids; F32.9 Major depressive disorder, single episode, unspecified; E03.9 Hypothyroidism, unspecified; M19.90 Unspecified osteoarthritis, unspecified site; Z79.1 Long term (current) use of non-steroidal anti-inflammatories (NSAID); K22.4 Dyskinesia of esophagus
CPT/HCPCS: 36415; 36430; 71010; 80048; 80053; 80069; 80202; 81003; 81015; 82330; 82553; 82803; 83605; 83690; 84484; 85025; 85610; 85730; 86850; 86900; 86901; 87040; 87086; 87324; 87449; 93005; A4216; C9113; G8978-GP-CJ; G8979-GP-CJ; G8980-GP-CJ; G8987-GO-CI; G8988-GO-CI; G8989-GO-CI; J0696; J2001; J2405; J2543; J2704; J3010; J3370; J7050; P9016; Q0162

== ENCOUNTER 2017-07-19 10:51 | Outpatient (CLI) | payer MEDICARE ==
--- NOTE | 2017-07-19 12:52 | RAD ---
TWO VIEWS OF THE CHEST: 07/19/2017 HISTORY: Fever. Cough. COMPARISON: 06/04/2015 FINDINGS: There is no pneumothorax, pleural fluid, focal consolidation, or alveolar edema. Heart and mediastin al contours are unremarkable. There is multilevel degenerative change within the thoracic spine. There is mild increased linear interstitial density bilaterally, stable. IMPRESSION: Stable appearance of the chest, as detailed above. POS: [facility]
== END 2017-07-19 10:52 | disposition home or self-care (01) ==
LOC: RAD-FRANK 10:51
PROVIDERS: ATTEND Nurse Practitioner Family
DX: J40 Bronchitis, not specified as acute or chronic (principal)
CPT/HCPCS: 71046

== ENCOUNTER 2017-07-23 06:04 | Inpatient (IN) | payer MEDICARE, OTHER ==
[2017-07-23] MEDS ORDERED: Albuterol Sulfate 2.5 mg/0.5 ml Neb ONE ×2 (06:48→11:11)
[2017-07-23] MEDS ORDERED: Albuterol Sulfate 2.5 mg/3 ml Neb ONE ×2 (06:48→11:12)
[2017-07-23 07:20] LABS: #Basophils 0.1 thou/uL (0.0-0.2); #Lymphocytes 2.1 thou/uL (1.20-3.40); #Neutrophils 5.3 thou/uL (1.40-6.50); %Basophils 0.9 % (0.0-1.0); %Eosinophils 0.1 % (0.0-10.0); %Monocytes 11.5 % (0.0-10.0); %Neutrophils 62.5 % (42.0-75.0); Hemoglobin 12.8 g/dL (12.0-16.0); Mean Corpuscular HGB CONC 33.2 g/dL (32.0-36.0); Mean Corpuscular Hemoglobin 27.5 pg (27.0-31.0); Mean Corpuscular Volume 82.9 fl (81.0-99.0); Platelet Count 376 thou/uL (130-400); RBC Distribution Width 15.3 % (11.5-14.5); Red Blood Cell (RBC) Count 4.66 mill/uL (4.20-5.40); White Blood Cell (WBC) Count 8.4 thou/uL (4.8-10.8)
[2017-07-23] MEDS ORDERED: Water For Inject, Bacteriostat 30 ML ONE (07:21)
[2017-07-23] MEDS ORDERED: methylPREDNISolone Sod Succ/PF 125 MG/2 ML VIAL ONE (07:21)
[2017-07-23 07:29] LABS: Prothrombin Time 12.8 SEC (12.0-14.7)
[2017-07-23 07:38] LABS: ALT (SGPT) 16 U/L (8-55); AST (SGOT) 19 U/L (5-34); Albumin 4.3 g/dL (3.4-4.8); Alkaline Phosphatase 66 U/L (40-150); Anion Gap 13 mmol/L (10-20); BUN (Urea Nitrogen) 14 mg/dL (9.8-20.1); Bilirubin, Total 0.3 mg/dL (0.2-1.2); Calc. Creatinine Clearance 0 mL/min (70-130); Calcium 9.8 mg/dL (7.8-10.44); Carbon Dioxide 29 mmol/L (23-31); Chloride 100 mmol/L (98-107); Estimated GFR-MDRD 79; Globulin 2.5 g/dL (2.4-3.5); Glucose 99 mg/dL (83-110); Magnesium 2.4 mg/dL (1.6-2.6); Potassium 4.2 mmol/L (3.5-5.1); Protein, Total 6.8 g/dL (6.0-8.3); Sodium 138 mmol/L (136-145)
[2017-07-23 07:41] LABS: CKMB 1.5 ng/mL (0-6.6); Troponin I Less than 0.010 ng/mL (< 0.028)
[2017-07-23 08:39] LABS: D-Dimer Test 0.54 *mcg/mL (0.27-0.43)
--- NOTE | 2017-07-23 08:40 | RAD ---
CHEST 1 VIEW: Date: 07/23/17 HISTORY: Dyspnea. COMPARISON: Chest 1 view dated 05/11/17. FINDINGS: Lungs are clear. No pneumothorax or effusion. Cardiac silhouette and mediastinal contour is within no rmal limits. IMPRESSION: No acute intrathoracic abnormality. POS: [facility]
--- NOTE | 2017-07-23 09:58 | CT ---
CTA CHEST WITH CONTRAST: Date: 07/23/17 HISTORY: Dyspnea. COMPARISON: Chest 1 view from same date. FINDINGS: CT angiogram chest performed after the intravenous administration of contrast. 3D rendering was provi ded. There is mild atherosclerotic plaque of the aorta. No aneurysmal dilatation. Great vessels are patent . No proximal segmental pulmonary arterial filling defect. No mediastinal adenopathy. No pericardial effusion. There are too small to characterize hypodensities in the right and left lobes of the liver. There is a mass of the left adrenal gland with some peripheral edema, but not definitively an adenoma. There i s some scarring in the lung apices. There are a few tree-in-bud opacities within the right middle lob e. Sternum and manubrium are intact. No thoracic spine compression fracture. IMPRESSION: 1. No segmental proximal pulmonary arterial filling defect. 2. Tree-in-bud opacities, very mild, in right middle lobe, suggesting aspiration or infection. 3. Mass left adrenal gland with some peripheral inflammation. This measures 3.0 cm. It is not defini tely an adenoma. A follow-up MRI adrenal protocol is recommended. CODE T. POS: [facility]
[2017-07-23] MEDS ORDERED: Azithromycin 500 MG in Sodium Chloride 0.9% 250 ML 250 ML IVPB SCH (10:45)
[2017-07-23 11:41] LABS: Troponin I Less than 0.010 ng/mL (< 0.028)
[2017-07-23] MEDS ORDERED: Ondansetron HCl/PF 4 MG/2 ML Vial ONE (11:43)
[2017-07-23] MEDS ORDERED: HYDROcodone/Acetaminophen 10/325 mg Tablet PO PRN (12:16)
--- NOTE | 2017-07-23 12:46 | HP ---
DATE OF ADMISSION: 07/23/2017 CHIEF COMPLAINT: Shortness of breath. HISTORY OF PRESENT ILLNESS: This is a 72-year-old white female with known history of stroke in [place], which was followed by a peptic ulcer bleed and she was initially on aspirin and was changed to Plavix at that time. The patient also has a known history of hypertension and is a chronic smoker. For the past few days, she was feeling very sick and was having cough and low grade fever, so she kash t to her primary care doctor and was diagnosed with pneumonia and was started on oral antibiotics. T he patient was not improving and was having persistent shortness of breath and associated cough with nonproductive sputum. She came to the ER for further evaluation and on chest x-ray, she had no evide nce of any pneumonia, but there was evidence of severe wheezing and drop in her saturations to 80%. She was given nebulizer treatment and her sats were still dropping, so the patient is being evaluated for a possible COPD, which she was never diagnosed. The patient denies having any chest pain at thi s time. No nausea, no vomiting, no diarrhea, no constipation. She denies having any sick contacts. She had a flu or pneumonia shot this season. PAST MEDICAL HISTORY: 1. Peptic ulcer disease with bleeding a few months ago. 2. History of a stroke in 02/2017. 3. Hypertension. 4. Possible reactive airway disease. PAST SURGICAL HISTORY: 1. Skin cancer. 2. Appendectomy. 3. Orthopedic bilateral hip replacement surgery. 4. Back surgery. 5. Hysterectomy. SOCIAL HISTORY: The patient has a history of drinking alcohol in the past, but no alcohol for the pa st few years. She is a nonsmoker. Smokes half pack a day and done for almost 40 years. No history of illicit drug use. ALLERGIES: 1. DEMEROL. 2. SULFA. 3. HONEY BEE VENOM. CURRENT MEDICATIONS: 1. Alprazolam 0.25 mg p.o. b.i.d. 2. Aspirin 81 mg p.o. daily. 3. Duloxetine 2 capsules p.o. daily. 4. Hydrocodone q.8 hours. 5. Levothyroxine. 6. Lisinopril 1 tablet p.o. daily. 7. Pantoprazole 40 mg p.o. daily. 8. Pravastatin 20 mg p.o. at bedtime. REVIEW OF SYSTEMS: All 12 systems are reviewed with the patient thoroughly and found to be negative at this time. Constitutional: Weight loss or gain, sense of well-being, ability to conduct usual activities, exerc ise tolerance. Skin/Breast: Rash, itching, changes in hair growth or loss, nail changes, breast lumps, tenderness, swelling, nipple discharge. Eyes: Vision, double vision, tearing, blind spots, pain. ENT/Mouth: Headaches (location, time of onset, duration, precipitating factors), vertigo, lightheadedness, injury. Vision, double vision, tearing, blind spots, pain, nose b leeding, colds, obstruction, discharge, dental difficulties, gingival bleeding, dentures, neck stiffn ess, pain, tenderness, masses in thyroid or other areas Cardiovascular: Precordial pain, substernal distress, palpitations, syncope, dyspnea on exertion, or thopnea, nocturnal paroxysmal dyspnea, edema, cyanosis, hypertension, heart murmurs, varicosities, ph lebitis, claudication. Respiratory: Pain, shortness of breath, wheezing, stridor, cough, hemoptysis, fever or night sweats Gastrointestinal: Poor appetite, dysphagia, indigestion, abdominal pain, heartburn, eructation, naus ea, vomiting, hematemesis, jaundice, constipation, or diarrhea, abnormal stools (trixie-colored, tarry, bloody, greasy, foul smelling), flatulence, hemorrhoids, recent changes in bowel habits. Genitourinary: Urgency, frequency, dysuria, nocturia, hematuria, polyuria, oliguria, unusual (or breana nge in) color of urine, stones, hesitancy, change in size of stream, dribbling, acute retention or in continence, libido, potency. Musculoskeletal: Pain, swelling, redness or heat of muscles or joints, limitation, of motion, muscular weakness, atrophy, cramps. Neurologic/Psychiatric: Convulsions, paralyses, tremor, incoordination, parasthesias, difficulties w ith memory of speech, sensory or motor disturbances, or muscular coordination (ataxia, tremor), emoti onal problems, anxiety, depression, previous psychiatric care, unusual perceptions, hallucinations. Allergy/Immunologic: Skin rash, anemia, bleeding tendency, polydipsia, polyuria, intolerance to heat or cold. PHYSICAL EXAMINATION: VITAL SIGNS: Blood pressures are 136/88, heart rate is 88, respiratory rate is 17, saturation is 93% on 3 liters. GENERAL: The patient is seen sitting on the bed with severe respiratory distress. HEENT: Atraumatic, normocephalic. PERRLA. Extraocular muscles were intact. CARDIOVASCULAR: S1, S2 normal. No murmurs, rubs, or gallops. NECK: No thyromegaly. No JVD was noted. LUNGS: Bilateral air entry was equal. Wheezing was noted bilaterally with mild low grade crackles i n the lower lungs. ABDOMEN: Soft, nontender, no guarding, no rebound tenderness. Bowel sounds normal. MUSCULOSKELETAL: No calf tenderness. No pedal edema. No joint tenderness. No joint swelling. SKIN: No cyanosis, no erythema, no rash, no pallor. NEUROLOGIC: Cranial nerve examination II-XII intact. No focal deficits are noted. PSYCHIATRIC: No signs of suicidal ideation. No signs of margarita. LABORATORY DATA: WBC 8.4, hemoglobin is 12.8, hematocrit is 38.6, platelets are 376. Sodium 130, po tassium 4.2, chloride 100, bicarbonate 29, BUN 14, creatinine 0.72. Troponin is 0.010. BNP is 51. Chest x-ray was reviewed by me showed no evidence of any pneumonia and had clear lungs. ASSESSMENT AND PLAN: 1. Possible acute chronic obstructive pulmonary disease exacerbation. 2. History of recent pneumonia with community-acquired pneumonia. 3. History of cerebrovascular accident. 4. Peptic ulcer disease. 5. Hypertension. 6. Hyperlipidemia. PLAN: 1. The plan is to closely monitor this patient. We will start the patient on albuterol nebulizer tr eatments every 2 hours as needed and DuoNebs q.4 hours. The patient was never diagnosed with COPD in the past and has not done any spirometry studies. Based on her symptoms and response to nebulizer t reatments and with past history of smoking, most likely she has a COPD. We will closely monitor the patient and start the patient on Solu-Medrol 40 mg q.6 hours. If the patient continues to improve, we will plan to send the patient home with the DuoNebs and steroid inhaler. I will have the patient fo llow up with a flight purser. 2. The patient has a history of recent pneumonia diagnosed by her primary care doctor, and she romel nues to have shortness of breath with cough with productive sputum, so at this time, we will start th e patient on empiric antibiotic with Rocephin and azithromycin. Send the blood cultures. 3. Hypertension, well controlled. We will restart the home medications. 4. The patient has a history of peptic ulcer disease. The patient told that she stopped taking aspi rin, but she is still on the EMR. At this time, we will hold off on the aspirin because of the pepti c ulcer disease with bleeding. 5. We will continue the patient on the Protonix. 6. We will continue the patient on Pravastatin 20 mg daily. 7. DVT prophylaxis, Lovenox 40 mg subcu a day. I spent 70 minutes of this patient.
[2017-07-23] MEDS ORDERED: ISOVUE-370 76%-LOCM 1 ML ONE (14:28)
[2017-07-23] MEDS ORDERED: Bisacodyl 5 MG TAB PO PRN (17:10)
[2017-07-23] MEDS ORDERED: Albuterol Sulfate 2.5 mg/3 ml Neb NEB PRN (17:10)
[2017-07-23] MEDS ORDERED: cefTRIAXone\\ROCEPHIN 1 GM in Sodium Chloride 0.9% 100 ML IVPB SCH (17:10)
[2017-07-23] MEDS ORDERED: Senokot 8.6 MG TAB PO PRN (17:10)
[2017-07-23] MEDS ORDERED: Acetaminophen 325 MG TAB PO PRN (17:10)
[2017-07-23 17:15] VITALS: BMI 27.8
[2017-07-23] MEDS: ALPRAZolam 0.25 MG TAB PO PRN (17:33)
[2017-07-23] MEDS: Simvastatin 5 MG TAB PO SCH (20:05)
[2017-07-23] MEDS ORDERED: Pravastatin Sodium 20 MG TAB PO SCH (21:00)
[2017-07-24 04:14] LABS: #Lymphocytes 2.6 thou/uL (1.20-3.40); #Monocytes 1.3 thou/uL (0.11-0.59); %Basophils 0.4 % (0.0-1.0); %Eosinophils 0.1 % (0.0-10.0); %Lymphocytes 26.2 % (21.0-51.0); %Neutrophils 60.3 % (42.0-75.0); Hemoglobin 11.3 g/dL (12.0-16.0); Mean Corpuscular HGB CONC 32.7 g/dL (32.0-36.0); Mean Corpuscular Hemoglobin 27.3 pg (27.0-31.0); Mean Corpuscular Volume 83.5 fl (81.0-99.0); Mean Platelet Volume 8.1 fL (7.4-10.4); Platelet Count 349 thou/uL (130-400); RBC Distribution Width 15.3 % (11.5-14.5); Red Blood Cell (RBC) Count 4.13 mill/uL (4.20-5.40)
[2017-07-24 04:32] LABS: Anion Gap 14 mmol/L (10-20); BUN (Urea Nitrogen) 10 mg/dL (9.8-20.1); Calc. Creatinine Clearance 77 mL/min (70-130); Calcium 9.2 mg/dL (7.8-10.44); Carbon Dioxide 26 mmol/L (23-31); Chloride 102 mmol/L (98-107); Estimated GFR-MDRD 79; Glucose 103 mg/dL (83-110); Potassium 4.3 mmol/L (3.5-5.1); Sodium 138 mmol/L (136-145)
[2017-07-24] MEDS: Levothyroxine Sodium 75 MCG TAB PO SCH (05:46)
[2017-07-24] MEDS: Lisinopril/Hydrochlorothiazide 10 mg/12.5 mg Tablet PO SCH (07:48)
[2017-07-24] MEDS: DULoxetine 60 MG CAP PO SCH (07:48)
[2017-07-24] MEDS: Enoxaparin Sodium 40 MG/0.4 ML SYRINGE SC SCH (07:51)
[2017-07-24] MEDS ORDERED: Levothyroxine Sodium 25 MCG TAB PO SCH (09:00)
[2017-07-24] MEDS ORDERED: DULoxetine 30 MG CAP PO SCH (09:00)
[2017-07-24] MEDS ORDERED: Non-Formulary Item 1 EACH (Lisinopril/Hydrochlorothiazide [Lisinopril-Hctz 10-12.5 Mg Tab PO SCH (09:00)
[2017-07-24] MEDS: ALPRAZolam 0.25 MG TAB PO PRN ×2 (09:26→20:18)
[2017-07-24] MEDS: cefTRIAXone\\ROCEPHIN 1 GM, Syringe 0.4 ML in Sterile Water 9.6 ML SLOW IVP SCH (10:47)
[2017-07-24] MEDS: Azithromycin 500 MG in Sodium Chloride 0.9% 250 ML 250 ML IVPB SCH (11:13)
[2017-07-24] MEDS: HYDROcodone/Acetaminophen 5/325 mg Tablet PO PRN (11:47)
--- NOTE | 2017-07-24 13:04 | PDOC.PN ---
- Subjective Encounter Start Date: 07/24/17 Encounter Start Time: 10:30 Patient is seen today, alert and oriented. She is say she wants to go home today, she continuosly wheezing on Oxygen, She is unsafe for discharge, she needs one more night stay and off of oxygen before she goes home. - Objective Resuscitation Status: Resuscitation Status FULL:Full Resuscitation MAR Reviewed: Yes Vital Signs & Weight: Vital Signs (12 hours) Temp Pulse Resp BP BP Pulse Ox 07/24/17 11:46 97.8 F 88 16 112/80 97 07/24/17 08:00 98.3 F 95 18 92 L 07/24/17 07:53 98.3 F 95 18 121/75 91 L 07/24/17 07:48 97 121/75 07/24/17 04:00 98.1 F 97 18 147/85 H 97 Weight Weight 157 lb 7 oz Result Diagrams: 07/24/17 03:45 07/24/17 03:45 Radiology Reviewed by me: Yes Phys Exam - Physical Examination HEENT: PERRLA, moist MMs Neck: no nodes, no JVD Respiratory: wheezing present Cardiovascular: RRR, no significant murmur Gastrointestinal: soft, non-tender Musculoskeletal: pulses present, edema present Neurological: non-focal, normal sensation Lymphatic: no nodes Psychiatric: normal affect, A&O x 3 Skin: no rash, normal turgor Dx/Plan (1) COPD with acute exacerbation Code(s): J44.1 - CHRONIC OBSTRUCTIVE PULMONARY DISEASE W (ACUTE) EXACERBATION Status: Acute Comment: Tashi is continued on IV steroids, NEb treatment, Showed good improveemnt, Pt will need to be off of oxygen before she goes or may need home oxygen. (2) Community acquired pneumonia Code(s): J18.9 - PNEUMONIA, UNSPECIFIED ORGANISM Status: Acute Comment: Community acquired pneumoni, chest xray shows no infiltrate but was diagnosed as outpaient, likely viral pneumonia, will d/c Antibiotics. (3) Acute respiratory failure with hypoxia Code(s): J96.01 - ACUTE RESPIRATORY FAILURE WITH HYPOXIA Status: Acute (4) HTN (hypertension) Code(s): I10 - ESSENTIAL (PRIMARY) HYPERTENSION Status: Acute Comment: Remains on 3 liters of oxygen, will need to consult Pulmonary if her hypoxia worsening,. (5) Hypothyroidism Code(s): E03.9 - HYPOTHYROIDISM, UNSPECIFIED Status: Chronic Comment: continue Home meds. - Plan cont current plan of care, PT/OT, high school social science teacher, respiratory therapy, incentive spirometry, out of bed/ambulate, DVT proph w/lovenox * . - Discharge Day Encounter end time: 11:00 Review of Systems - Review of Systems Eyes: negative: Pain, Vision Change, Conjunctivae Inflammation, Eyelid Inflammation, Redness, Other ENT: negative: Ear Pain, Ear Discharge, Nose Pain, Nose Discharge, Nose Congestion, Mouth Pain, Mouth Swelling, Throat Pain, Throat Swelling, Other Respiratory: Cough, Shortness of Breath, SOB with Excertion, Wheezing Cardiovascular: negative: chest pain, palpitations, orthopnea, paroxysmal nocturnal dyspnea, edema, light headedness, other Gastrointestinal: negative: Nausea, Vomiting, Abdominal Pain, Diarrhea, Constipation, Melena, Hematochezia, Other Genitourinary: negative: Dysuria, Frequency, Incontinence, Hematuria, Retention , Other Musculoskeletal: negative: Neck Pain, Shoulder Pain, Arm Pain, Back Pain, Hand Pain, Leg Pain, Foot Pain, Other - Medications/Allergies Allergies/Adverse Reactions: Allergies Allergy/AdvReac Type Severity Reaction Status Date / Time meperidine HCl [From Demerol] Allergy Verified 03/10/15 00:11 Sulfa (Sulfonamide Allergy Verified 03/10/15 00:11 Antibiotics) venom-honey bee Allergy Verified 03/10/15 00:11 [bee venom (honey bee)] Medications: Current Medications Acetaminophen (Tylenol) 650 mg PO Q4H PRN PRN Reason: Headache/Fever or Pain Hydrocodone Bitart/Acetaminophen (Ragland 5/325) 1 tab PO Q4H PRN PRN Reason: Moderate Pain (4-6) Last Admin: 07/24/17 11:47 Dose: 1 tab Albuterol Sulfate (Ventolin) 2.5 mg NEB Q2H PRN PRN Reason: Wheezing Albuterol/Ipratropium (Duoneb) 3 ml NEB [id number] Last Admin: 07/24/17 09:58 Dose: Not Given Alprazolam (Xanax) 0.25 mg PO BID PRN PRN Reason: Anxiety Last Admin: 07/24/17 09:26 Dose: 0.25 mg Bisacodyl (Dulcolax) 10 mg PO DAILYPRN PRN PRN Reason: Constipation Duloxetine HCl (Cymbalta) 60 mg PO DAILY [facility] Last Admin: 07/24/17 07:48 Dose: 60 mg Enoxaparin Sodium (Lovenox) 40 mg SC 0900 [facility] Last Admin: 07/24/17 07:51 Dose: 40 mg Lisinopril/HCTZ (Prinizide 10-12.5) 1 tab PO DAILY [facility] Last Admin: 07/24/17 07:48 Dose: 1 tab Azithromycin 500 mg/ Sodium (Chloride) 250 mls @ 250 mls/hr IVPB 1200 [facility] Last Admin: 07/24/17 11:13 Dose: 250 mls Ceftriaxone Sodium 1 gm/ (Syringe 0.4 ml/ Sterile Water) 10 mls @ 120 mls/hr SLOW IVP 1100 [facility] Last Admin: 07/24/17 10:47 Dose: 10 mls Levothyroxine Sodium (Synthroid) 75 mcg PO 0600 [facility] Last Admin: 07/24/17 05:46 Dose: 75 mcg Pantoprazole Sodium (Protonix) 40 mg PO BID [facility] Stop: 08/06/17 21:01 Last Admin: 07/24/17 07:47 Dose: 40 mg Pantoprazole Sodium (Protonix) 40 mg PO DAILY [facility] Senna (Senokot) 2 tab PO HSPRN PRN PRN Reason: Constipation Simvastatin (Zocor) 10 mg PO HS [facility] Last Admin: 07/23/17 20:05 Dose: 10 mg Sodium Chloride (Flush - Normal Saline) 10 ml IVF Q12HR [facility] Last Admin: 07/24/17 07:52 Dose: 10 ml Sodium Chloride (Flush - Normal Saline) 10 ml IVF PRN PRN PRN Reason: Saline Flush
[2017-07-24] MEDS: Simvastatin 5 MG TAB PO SCH (20:18)
[2017-07-25] MEDS: Levothyroxine Sodium 75 MCG TAB PO SCH (05:06)
[2017-07-25] MEDS: Enoxaparin Sodium 40 MG/0.4 ML SYRINGE SC SCH (07:39)
[2017-07-25] MEDS: Lisinopril/Hydrochlorothiazide 10 mg/12.5 mg Tablet PO SCH (07:40)
[2017-07-25] MEDS: DULoxetine 60 MG CAP PO SCH (07:40)
[2017-07-25] MEDS: ALPRAZolam 0.25 MG TAB PO PRN (07:47)
[2017-07-25 07:55] VITALS: TEMP 97.6
[2017-07-25] MEDS: cefTRIAXone\\ROCEPHIN 1 GM, Syringe 0.4 ML in Sterile Water 9.6 ML SLOW IVP SCH (11:25)
[2017-07-25] MEDS: Azithromycin 500 MG in Sodium Chloride 0.9% 250 ML 250 ML IVPB SCH (11:32)
[2017-07-25] MEDS: HYDROcodone/Acetaminophen 5/325 mg Tablet PO PRN (12:03)
--- NOTE | 2017-07-25 12:22 | PDOC.PN ---
- Subjective Encounter Start Date: 07/25/17 Encounter Start Time: 10:15 -: old records requested/rev Pt seen and examined, chart reviewed in its entirety, this is my first visit with this patient Pt states her breathing is better, wants to go home. No F/C, no n/V/D/c, no CP or SOB at rest, some CLARK 10 point ROS performed and neg for all systems except as above - Objective Resuscitation Status: Resuscitation Status FULL:Full Resuscitation MAR Reviewed: Yes Vital Signs & Weight: Vital Signs (12 hours) Temp Pulse Resp BP BP Pulse Ox 07/25/17 07:55 97.6 F 90 18 104/69 92 L 07/25/17 07:40 90 104/69 07/25/17 07:23 79 14 92 L Weight Weight 157 lb 7 oz I&O: 07/24/17 07/25/17 07/26/17 06:59 06:59 06:59 Intake Total 740 Balance 740 Result Diagrams: 07/24/17 03:45 07/24/17 03:45 Radiology Reviewed by me: Yes EKG Reviewed by me: Yes Phys Exam - Physical Examination Constitutional: NAD HEENT: PERRLA, moist MMs, sclera anicteric, oral pharynx no lesions Neck: no nodes, no JVD, supple, full ROM Respiratory: no wheezing, no rales, no rhonchi, clear to auscultation bilateral Cardiovascular: RRR, no significant murmur, no rub Gastrointestinal: soft, non-tender, no distention, positive bowel sounds Musculoskeletal: no edema, pulses present Neurological: non-focal, normal sensation, moves all 4 limbs Lymphatic: no nodes Psychiatric: normal affect, A&O x 3 Skin: no rash, normal turgor, cap refill <2 seconds Dx/Plan (1) Acute respiratory failure with hypoxia Code(s): J96.01 - ACUTE RESPIRATORY FAILURE WITH HYPOXIA Status: Acute Comment: weaning off O2. getting O2 sats on RA and with ambulation. (2) COPD with acute exacerbation Code(s): J44.1 - CHRONIC OBSTRUCTIVE PULMONARY DISEASE W (ACUTE) EXACERBATION Status: Acute Comment: Pt got IV steroids in the ER, but not continued. starting po prednisone today and QAM, will nees nebulizer and meds for home, outpatient Pulm followup. (3) HTN (hypertension) Code(s): I10 - ESSENTIAL (PRIMARY) HYPERTENSION Status: Chronic Qualifiers: Hypertension type: essential hypertension Qualified Code(s): I10 - Essential (primary) hypertension (4) Tobacco abuse Code(s): Z72.0 - TOBACCO USE Status: Chronic (5) Hypothyroidism Code(s): E03.9 - HYPOTHYROIDISM, UNSPECIFIED Status: Chronic Qualifiers: Hypothyroidism type: acquired Qualified Code(s): E03.9 - Hypothyroidism, unspecified Comment: continue Home meds. (6) Community acquired pneumonia Code(s): J18.9 - PNEUMONIA, UNSPECIFIED ORGANISM Status: Acute Qualifiers: Laterality: right Lung location: middle lobe of lung Qualified Code(s): J18.1 - Lobar pneumonia, unspecified organism Comment: CTA showed RML infiltrate with Tree-in-Bid appearance. Danyelle abx, ccm - Plan cont current plan of care, continue antibiotics, respiratory therapy, out of bed /ambulate, DVT proph w/lovenox * .
[2017-07-25] MEDS ORDERED: predniSONE 20 MG TAB PO SCH (12:30)
[2017-07-25 13:32] VITALS: BP 119/80
--- NOTE | 2017-07-25 15:55 | DIS ---
DATE OF ADMISSION: 07/23/2017 DATE OF DISCHARGE: 07/25/2017 PRIMARY CARE PHYSICIAN: RUTHIE Cardenas DISCHARGE DIAGNOSES: 1. Right middle lobe community-acquired pneumonia. 2. Acute exacerbation of chronic obstructive pulmonary disease, new diagnosis chronic obstructive pu lmonary disease. 3. History of peptic ulcer disease. 4. History of cerebrovascular disease status post stroke in 02/2017. 5. Hypertension, essential. CONSULTATIONS: None. PROCEDURES: None. HISTORY AND PHYSICAL: MS. Vanegas is a 72-year-old female who presented to emergency department on for complaints of shortness of breath. The patient was feeling poorly over a few days prior to admission with cough and low grade fever, so she went to PCP and was diagnosed with pneumonia and started on oral antibiotics. She was not improving and had persistent shortness of breath, cough wi th nonproductive of sputum, so came to the emergency department for any further evaluation. Chest x- ray was relatively clear; however, CT angio showed a right middle lobe infiltrate. She was subsequen tly admitted for pneumonia. Of note, she was having severe wheezing with drop in saturations of 80% on room air. HOSPITAL COURSE: The patient was seen and examined. She was admitted by Dr. Sprague, agreed to start her on nebulizer treatments, steroids, antibiotics. On 07/23/2017 to 07/24/2017, she improved and was requiring less oxygen, maintaining saturations. Sh jennifer had no fevers. By 07/25/2017, she was 92% on room air, even with ambulation, she was afebrile. White blood cell cou nt was normal and was otherwise stable for discharge. She has no nebulizer use at home and needs a p rescription for that. PHYSICAL EXAMINATION: The patient was seen and examined on the day of discharge. DISCHARGE PLAN AND DISPOSITION: Discussed with the patient face to face at the bedside. DISCHARGE MEDICATIONS: 1. Albuterol sulfate 2.5 mg nebulizer every 2 hours as needed for shortness of breath or wheezing. 2. DuoNeb 3 mL inhaled q.i.d. 3. Xanax 0.25 mg p.o. b.i.d. p.r.n. anxiety. New prescription sent. 4. Cymbalta 30 mg p.o. b.i.d. 5. Levothyroxine 75 mcg p.o. daily. 6. Lisinopril/HCTZ 04/07.5 one tab p.o. daily. 7. Protonix 40 mg p.o. b.i.d. 8. Pravachol 20 mg p.o. at bedtime. 9. Azithromycin being stopped. 10. Tylenol No 3 p.r.n. 11. Protonix 40 mg p.o. daily. FOLLOWUP APPOINTMENTS: Primary care physician within a week. DISCHARGE ACTIVITY: Per Cardiopulmonary limits. DISCHARGE DIET: Heart healthy recommended.
[2017-07-26] MEDS ORDERED: predniSONE 20 MG TAB PO SCH (08:00)
--- NOTE | 2017-07-30 12:20 | EKG ---
Test Reason : Blood Pressure : / mmHG Vent. Rate : 080 BPM Atrial Rate : 080 BPM P-R Int : 112 ms QRS Dur : 106 ms QT Int : 420 ms P-R-T Axes : 077 246 066 degrees QTc Int : 484 ms Normal sinus rhythm Right superior axis deviation Incomplete right bundle branch block Right ventricular hypertrophy with repolarization abnormality Inferior infarct , age undetermined Abnormal ECG Confirmed by TERRANCE ALFREDO M.D. ([id number]), editorial assistant DARÍO CLEMONS ([id number]) on 07/30/2017 12:20:22 PM Referred By: Confirmed By:TERRANCE ALFREDO M.D.
== END 2017-07-25 17:25 | disposition home or self-care (01) | DRG 193 ==
LOC: ERS 06:04 → ERHOLD 11:07 → T4-B 16:47
PROVIDERS: ADMIT Family Medicine; ATTEND Family Medicine
DX: J18.1 Lobar pneumonia, unspecified organism (principal); J96.01 Acute respiratory failure with hypoxia; J44.0 Chronic obstructive pulmonary disease with (acute) lower respiratory infection; J44.1 Chronic obstructive pulmonary disease with (acute) exacerbation; E78.5 Hyperlipidemia, unspecified; I10 Essential (primary) hypertension; Z86.73 Personal history of transient ischemic attack (TIA), and cerebral infarction without residual deficits; K27.9 Peptic ulcer, site unspecified, unspecified as acute or chronic, without hemorrhage or perforation; Z87.01 Personal history of pneumonia (recurrent); F17.210 Nicotine dependence, cigarettes, uncomplicated; E03.9 Hypothyroidism, unspecified
CPT/HCPCS: 36415; 71045; 71275; 80048; 80053; 82553; 83605; 83735; 83880; 84484; 85025; 85379; 85610; 87040; 87070; 87205; 93005; 94640; 94760; 96361; 96374; 96375; A4216; G8978-GP-CI; G8979-GP-CI; G8980-GP-CI; G8987-GO-CI; G8988-GO-CI; G8989-GO-CI; J0456; J0696; J1650; J2405; J2930; J7050; J7506; J7611; J7620

== ENCOUNTER 2017-08-02 12:26 | Outpatient (CLI) | payer MEDICARE | END 2017-08-02 12:27 | disposition home or self-care (01) | LOC: BICMAMMO 12:26 | PROVIDERS: ATTEND Nurse Practitioner Family | DX: Z12.31 Encounter for screening mammogram for malignant neoplasm of breast (principal) | CPT/HCPCS: 77063; 77067 ==

== ENCOUNTER 2017-09-12 01:03 | Observation (INO) | payer MEDICARE ==
[2017-09-12 01:56] LABS: #Basophils 0.1 thou/uL (0.0-0.2); #Eosinphils 0.1 thou/uL (0.0-0.7); #Lymphocytes 1.2 thou/uL (1.20-3.40); #Monocytes 0.6 thou/uL (0.11-0.59); #Neutrophils 8.3 thou/uL (1.40-6.50); %Basophils 0.7 % (0.0-1.0); %Eosinophils 0.8 % (0.0-10.0); %Lymphocytes 11.8 % (21.0-51.0); %Monocytes 5.7 % (0.0-10.0); %Neutrophils 81.1 % (42.0-75.0); Hemoglobin 11.9 g/dL (12.0-16.0); Mean Corpuscular HGB CONC 32.1 g/dL (32.0-36.0); Mean Corpuscular Hemoglobin 25.7 pg (27.0-31.0); Mean Platelet Volume 7.8 fL (7.4-10.4); Platelet Count 356 thou/uL (130-400); RBC Distribution Width 17.1 % (11.5-14.5); Red Blood Cell (RBC) Count 4.63 mill/uL (4.20-5.40); White Blood Cell (WBC) Count 10.3 thou/uL (4.8-10.8)
[2017-09-12] MEDS ORDERED: Aspirin 325 MG TAB ONE (02:07)
[2017-09-12 02:09] LABS: Bilirubin Negative (Negative); Blood, Urine Negative (Negative); Clarity CLEAR (Clear); Glucose, Urine (Dipstick) Negative (Negative); Leukocyte Negative (Negative); Nitrite Negative (Negative); Protein, Urine (Dipstick) Negative (Neg-Trace); Specific Gravity, Urine 1.021 (1.002-1.036)
[2017-09-12 02:09] LABS: Prothrombin Time 12.8 SEC (12.0-14.7)
[2017-09-12 02:10] LABS: Anion Gap 12 mmol/L (10-20); BUN (Urea Nitrogen) 16 mg/dL (9.8-20.1); CK (CPK) 78 U/L (29-168); Calc. Creatinine Clearance 0 mL/min (70-130); Calcium 9.5 mg/dL (7.8-10.44); Carbon Dioxide 27 mmol/L (23-31); Chloride 104 mmol/L (98-107); Estimated GFR-MDRD 73; Glucose 128 mg/dL (83-110); Potassium 3.9 mmol/L (3.5-5.1); Sodium 139 mmol/L (136-145)
[2017-09-12 02:14] LABS: CKMB 1.6 ng/mL (0-6.6); Troponin I Less than 0.010 ng/mL (< 0.028)
[2017-09-12 06:03] LABS: Troponin I Less than 0.010 ng/mL (< 0.028)
--- NOTE | 2017-09-12 07:53 | CT ---
PRELIMINARY REPORT/[facility]/EMERGENCY AFTER HOURS PROCEDURE: Addendum created by Iftikhar Trotter MD on 09/12/2017 1:29 AM Central Time ([place] & [place]) THIS REPORT CONTAINS FINDINGS THAT MAY BE CRITICAL TO PATIENT CARE. The findings were verbally commun icated via telephone conference with RIC PARADA at 1:29 AM GREEN CHAIN OFFBEARER on 09/12/2017. The findings were a cknowledged and understood. Initial Report created on 09/12/2017 1:27 AM Central Time ([place] & [place]) EXAM: CT Head Without Intravenous Contrast CLINICAL HISTORY: 72 years old, female; Signs and symptoms; Altered mental status/memory loss; Age related cognitive de goins; Patient HX: Pt with HX. Of tia's TECHNIQUE: Axial computed tomography images of the head/brain without intravenous contrast. All CT scans at this facility use one or more dose reduction techniques, viz.: automated exposure control; ma/kV adjustme nt per patient size (including targeted exams where dose is matched to indication; i.e. head); or ite rative reconstruction technique. COMPARISON: No relevant prior studies available. FINDINGS: Brain: Chronic right basal ganglia lacunar infarction No hemorrhage. Moderate white matter disease. No edema. Ventricles: Unremarkable. No ventriculomegaly. Bones/joints: Unremarkable. No acute fracture. Soft tissues: Unremarkable. Sinuses: Unremarkable as visualized. No acute sinusitis. Mastoid air cells: Unremarkable as visualized. No mastoid effusion. IMPRESSION: No intracranial hemorrhage.Please see discussion above. Thank you for allowing us to participate in the care of your patient. Dictated and Authenticated by: Iftikhar Trotter MD 09/12/2017 1:27 AM Central Time ([place] & [place]) FINAL REPORT NONCONTRAST HEAD CT: Date: 09/12/17 HISTORY: Stroke protocol. COMPARISON: 03/06/17. FINDINGS/IMPRESSION: This report is in agreement with the preliminary report by Randa. No acute intracranial process. Spring Tacker ruth small vessel ischemic change of white matter noted. Chronic hypodensity along the right crowder ra diata and right centrum semiovale are present and likely represent remote insult. POS: [facility]
[2017-09-12 09:00] LABS: Troponin I Less than 0.010 ng/mL (< 0.028)
[2017-09-12] MEDS ORDERED: Guaifenesin DM 100-10/5 ML UDCUP PO PRN (09:50)
[2017-09-12] MEDS ORDERED: Senokot 8.6 MG TAB PO PRN (09:50)
[2017-09-12] MEDS ORDERED: ALPRAZolam 0.25 MG TAB PO PRN (09:50)
[2017-09-12] MEDS ORDERED: Acetaminophen 325 MG TAB PO PRN (09:50)
[2017-09-12 10:30] LABS: Cardiac Risk 2.9 (Less than 4.5)
--- NOTE | 2017-09-12 11:01 | HP ---
REASON FOR ADMISSION: TIA. HISTORY OF PRESENTING ILLNESS: The patient gives history of going to bed around 9:00 p.m. yesterday. Soon patient started to see flashes of cards, figurines and cars. She tried to roll onto the floor, but this would not go away. She still had wild flashes and felt more numb on her left foot which is usually a bit numb. She also developed slurred speech and felt nauseated. She called 911 and patient was life flighted here. No complaints of shortness of breath, palpitation, PND or orthopnea. No complaints of chest pain. Currently , she has some headaches which she attributes to sinusitis. The patient says she had her family get together over the spring weekend. Currently, has no complaint of any specific weakness in any of the extremities. Left foot is normally numb due to prior hip surgery. The extra numbness that had climbed up her leg has completely resolved at present. The patient has had prior history of CVA affecting her left side of the body and face and had also affected her speech in 02/2017, all of which got better. She continues to smoke two cigarettes a day and has not been complaint on aspirin daily. She is worried about her ulcers acting up. PAST MEDICAL AND SURGICAL HISTORY: History of paroxysmal atrial fibrillation, peptic ulcer disease with large ulcer in the duodenum, history of CVA in 02/2017 , hypertension, COPD, skin cancer removal, appendectomy, bilateral hip replacement surgery, back surgery, hysterectomy. CURRENT MEDICATIONS: The patient is on Tylenol with codeine p.r.n., Ventolin nebulizer q.2 hourly p.r.n., Xanax 0.25 mg p.o. twice daily p.r.n. for anxiety, Cymbalta 30 mg p.o. twice daily, Synthroid 75 mcg p.o. daily, lisinopril with hydrochlorothiazide 10/12.5 mg p.o. daily, Protonix 40 mg daily, Pravachol 20 mg p.o. at bedtime. ALLERGIES: Allergic to MEPERIDINE, SULFA and HONEY BEE VENOM. FAMILY HISTORY: Mother of old age in her 80s. Father had prostate cancer and at the age of 72 years. PERSONAL HISTORY: The patient continues to smoke two cigarettes a day, does not abuse alcohol or drugs. She stays alone, but has ample family around to help her out if she needed. She normally walks by herself. REVIEW OF SYSTEMS: The following complete review of systems was negative, unless otherwise mentioned in the HPI or below: Constitutional: Weight loss or gain, ability to conduct usual activities. Skin: Rash, itching. Eyes: Double vision, pain. ENT/Mouth: Nose bleeding, neck stiffness, pain, tenderness. Cardiovascular: Palpitations, dyspnea on exertion, orthopnea. Respiratory: Shortness of breath, wheezing, cough, hemoptysis, fever or night sweats. Gastrointestinal: Poor appetite, abdominal pain, heartburn, nausea, vomiting, constipation, or diarrhea. Genitourinary: Urgency, frequency, dysuria, nocturia. Musculoskeletal: Pain, swelling. Neurologic/Psychiatric: Anxiety, depression. Allergy/Immunologic: Skin rash, bleeding tendency. PHYSICAL EXAMINATION: GENERAL: The patient is a 72-year-old female who is currently not in any acute distress. VITAL SIGNS: Blood pressure 128/78, pulse 100 per minute, respiratory rate 16 per minute, temperature 97.6 degrees Fahrenheit, and saturating 92% on room air. NECK: Supple, no elevated JVD. EYES: Extraocular muscles intact. Pupils reacting to light. ORAL CAVITY: Mucous membranes are moist. No exudates or congestion. CARDIOVASCULAR SYSTEM: S1, S2 heard. Regular rhythm. RESPIRATORY SYSTEM: Air entry 1+ bilateral. Scattered rhonchi plus no rales or wheezes. ABDOMEN: Soft, bowel sounds heard. No tenderness, rigidity or guarding. EXTREMITIES: No peripheral edema or calf tenderness. VASCULAR SYSTEM: Peripheral pulses 1+ bilateral. No ischemic ulcerations or gangrene. CENTRAL NERVOUS SYSTEM: No gross focal deficits seen. Patient is alert, awake , oriented well. PSYCHIATRIC SYSTEM: The patient's mood is euthymic. No hallucinations or delusions. IMAGING DATA AND LABORATORY DATA: CT brain done shows no acute intracranial process. There are chronic small vessel ischemic changes of white matter seen. Chronic hypodensity along the right crowder radiata and right centrum semiovale present. UA is negative for any infection. Troponin x3 is negative. BUN 16, creatinine 0.7, serum glucose 128. Electrolytes are stable. Hemoglobin and hematocrit 12 and 37, platelet count is 356. White count of 10. MCV is 80 with 81% neutrophils. EKG done shows sinus tachycardia at 106 beats per minute. There is RBBB seen. CLINICAL IMPRESSION AND PLAN: The patient will be on the stroke unit for transient ischemic attack with left leg paraesthesia, slurred speech and seeing wild flashes at bedtime. All of these have resolved at present. The patient has had prior history of right basal ganglia stroke with likely left-sided paraesthesias. We will obtain MRI brain to make sure she did not have any acute infarct. She is currently complaining of sinus headaches and we will place her on Motrin and morphine p.r.n. The patient is noncompliant with her aspirin as she is scared of her duodenal ulcer getting worse. She was counseled with regards to compliance with aspirin as this is the second episode of her having neurologic issue. We will also place her on DuoNebs q.6 hourly along with Synthroid, Prinzide and Crestor. We will continue to closely monitor her on the stroke unit. PT, OT evaluations will be requested. If patient ambulates well and her MRI is negative, she can be safely discharged this afternoon. Code status was discussed with the patient and it is FULL. She has a living will as well. Please note her MRI is -ve for acute cva. She is at her baseline except for mild headache and is wanting to go home now. This is a same day admit and discharge under observation status. Patient is adviced to f/u with her PCP in 1 week. ELANA
[2017-09-12] MEDS ORDERED: DULoxetine 30 MG CAP PO SCH ×3 (12:15→21:00)
--- NOTE | 2017-09-12 12:52 | MRI ---
BRAIN MRI WITHOUT CONTRAST: Date: 09/12/17 COMPARISON: 03/07/17. HISTORY: Transient ischemic attack. Weakness. TECHNIQUE: Brain MRI is performed without intravenous Gadolinium administration. Multisequential, multiplanar im aging is performed. FINDINGS: Calvarium has a normal T1 marrow signal intensity. Midline brain parenchymal structures are unremarka ble. Central arterial flow-voids are maintained. Absent restricted diffusion. T2 and FLAIR white branden er hyperintensities similar to the prior examination suggesting chronic small vessel ischemic changes of the white matter. Remote infarct with malacia involving the right crowder radiata and right centru m semiovale. No parenchymal mass, mass effect, or midline shift. Age-appropriate brain volume. Cortic al qureshi-white matter differentiation is preserved. No evidence of hydrocephalus. Adequate aeration of the sinuses and mastoid air cells. No evidence of hemorrhage on the gradient echo sequence. IMPRESSION: Absent restricted diffusion. No acute infarction. POS: RAJESH
[2017-09-12] MEDS ORDERED: HYDROcodone/Acetaminophen 5/325 mg Tablet ONE (13:08)
[2017-09-12] MEDS ORDERED: Famotidine 20 MG TAB PO SCH (21:00)
[2017-09-12] MEDS ORDERED: Rosuvastatin 10 MG TAB PO SCH (21:00)
[2017-09-13] MEDS ORDERED: Levothyroxine Sodium 75 MCG TAB PO SCH (06:00)
[2017-09-13] MEDS ORDERED: Levothyroxine Sodium 25 MCG TAB PO SCH (09:00)
[2017-09-13] MEDS ORDERED: Enoxaparin Sodium 40 MG/0.4 ML SYRINGE SC SCH (09:00)
[2017-09-13] MEDS ORDERED: Aspirin 81 mg Enteric Coated Tablet PO SCH (09:00)
[2017-09-13] MEDS ORDERED: Lisinopril/Hydrochlorothiazide 10 mg/12.5 mg Tablet PO SCH (09:00)
--- NOTE | 2017-10-28 14:24 | EKG ---
Test Reason : Blood Pressure : / mmHG Vent. Rate : 106 BPM Atrial Rate : 106 BPM P-R Int : 128 ms QRS Dur : 112 ms QT Int : 380 ms P-R-T Axes : 059 246 060 degrees QTc Int : 504 ms Sinus tachycardia Possible Left atrial enlargement Low voltage QRS Right bundle branch block Inferior infarct , age undetermined Cannot rule out Anterior infarct , age undetermined Abnormal ECG Confirmed by TAL VELEZ, RIC Crespo ([id number]), story editor GIULIA ALANIS ([id number]) on 10/28/2017 2:23:39 PM Referred By: Confirmed By:RIC PARADA MD
== END 2017-09-12 17:53 | disposition home or self-care (01) ==
LOC: ERS 01:03 → ERHOLD 02:50
PROVIDERS: ADMIT Internal Medicine; ATTEND Internal Medicine
DX: G45.9 Transient cerebral ischemic attack, unspecified (principal); R20.2 Paresthesia of skin; R47.81 Slurred speech; I48.0 Paroxysmal atrial fibrillation; K26.6 Chronic or unspecified duodenal ulcer with both hemorrhage and perforation; I10 Essential (primary) hypertension; J44.9 Chronic obstructive pulmonary disease, unspecified; F17.210 Nicotine dependence, cigarettes, uncomplicated; Z79.899 Other long term (current) drug therapy; Z88.5 Allergy status to narcotic agent; Z88.2 Allergy status to sulfonamides; Z91.030 Bee allergy status; Z96.643 Presence of artificial hip joint, bilateral; Z90.49 Acquired absence of other specified parts of digestive tract; Z90.710 Acquired absence of both cervix and uterus; Z98.890 Other specified postprocedural states; Z86.73 Personal history of transient ischemic attack (TIA), and cerebral infarction without residual deficits
CPT/HCPCS: 51701; 70450; 70551; 80048; 80061; 81003; 82550; 82553; 84484 ×2; 85025; 85610; 85730; 86850; 86900; 86901; 93005; 97139; 99285; G0378; 36415; A4353

== ENCOUNTER 2018-08-26 17:17 | Observation (INO) | payer MEDICARE ==
[~2018-08-26 17:17] MED LIST: ISOVUE-370 76%-LOCM 1 ML ONE
[2018-08-26 19:38] LABS: #Basophils 0.1 thou/uL (0.0-0.2); #Eosinphils 0.1 thou/uL (0.0-0.7); #Lymphocytes 1.5 thou/uL (1.20-3.40); #Monocytes 0.8 thou/uL (0.11-0.59); #Neutrophils 14.4 thou/uL (1.40-6.50); %Basophils 0.5 % (0.0-1.0); %Eosinophils 0.4 % (0.0-10.0); %Lymphocytes 9.1 % (21.0-51.0); %Monocytes 4.8 % (0.0-10.0); %Neutrophils 85.3 % (42.0-75.0); Hemoglobin 14.8 g/dL (12.0-16.0); Mean Corpuscular Hemoglobin 30.7 pg (27.0-31.0); Mean Platelet Volume 7.7 fL (7.4-10.4); Platelet Count 393 thou/uL (130-400); RBC Distribution Width 12.4 % (11.5-14.5); Red Blood Cell (RBC) Count 4.81 mill/uL (4.20-5.40); White Blood Cell (WBC) Count 16.8 thou/uL (4.8-10.8)
[2018-08-26] MEDS ORDERED: Morphine 4 MG/ML VIAL ONE (19:46)
[2018-08-26] MEDS ORDERED: Ondansetron PF 4 MG/2 ML Vial ONE (19:46)
[2018-08-26 19:54] LABS: ALT (SGPT) 11 U/L (8-55); AST (SGOT) 17 U/L (5-34); Albumin 4.3 g/dL (3.4-4.8); Alkaline Phosphatase 114 U/L (40-150); Anion Gap 15 mmol/L (10-20); BUN (Urea Nitrogen) 23 mg/dL (9.8-20.1); Bilirubin, Total 0.5 mg/dL (0.2-1.2); Calc. Creatinine Clearance 0 mL/min (70-130); Carbon Dioxide 25 mmol/L (23-31); Chloride 104 mmol/L (98-107); Estimated GFR-MDRD 50; Globulin 2.4 g/dL (2.4-3.5); Glucose 129 mg/dL (83-110); Potassium 4.1 mmol/L (3.5-5.1); Protein, Total 6.7 g/dL (6.0-8.3); Sodium 140 mmol/L (136-145)
[2018-08-26 20:03] LABS: CK (CPK) 86 U/L (29-168); Lipase 24 U/L (8-78)
--- NOTE | 2018-08-26 20:19 | RAD ---
AP VIEW CHEST: 08/26/18 HISTORY: Dizziness. Hypotension, diaphoresis. AP view chest is obtained on 08/26/18. COMPARISON: Comparison made to previous exam from 07/23/17. AP view chest demonstrates the lungs to be well aerated. No evidence of active intrathoracic disease seen. No evidence of effusions, pneumonia or pneumothorax seen. IMPRESSION: Unremarkable AP view chest. POS: [facility]
[2018-08-26 20:32] LABS: Bilirubin Small (Negative); Blood, Urine Negative (Negative); Clarity CLEAR (Clear); Glucose, Urine (Dipstick) Negative (Negative); Leukocyte Negative (Negative); Nitrite Negative (Negative); Protein, Urine (Dipstick) Negative (Neg-Trace); Specific Gravity, Urine 1.014 (1.002-1.036)
[2018-08-26] MEDS ORDERED: Ondansetron ODT 4 MG TAB PO PRN (22:17)
[2018-08-26] MEDS ORDERED: Acetaminophen 325 MG TAB PO PRN (22:17)
[2018-08-26] MEDS ORDERED: metroNIDAZOLE 500 MG/100 ML BAG ONE (22:30)
--- NOTE | 2018-08-26 22:41 | CT ---
NONCONTRAST ENHANCED CT IMAGES ABDOMEN AND PELVIS 08/26/18 HISTORY: Abdominal pain and cramping. Noncontrast enhanced CT images of the abdomen and pelvis demonstrate the lung bases to be unremarkabl e. No evidence of free intraperitoneal air seen. The liver contains hypodense areas most compatible with small subcentimeter hepatic cysts. No other h epatic masses seen. The gallbladder is unremarkable. The spleen unremarkable. The pancreas is unremarkable. There is a moderate sized left adrenal mass. Left adrenal lesion measures 2.6 x 2.8 cm. This left adr enal lesion appears to have been present on the previous CTA of the chest where this area was visuali zed, dated 07/23/17 and has not significantly changed. The kidneys are otherwise unremarkable. No dilated loops of small bowel seen. There is fluid in the proximal colon. There is some moderate th ickening of the colonic wall in the transverse colon. There is definitely abnormal thickening of the colonic wall in the descending and sigmoid colon. This may represent possible colitis. In addition, n umerous sigmoid diverticula are also present. No significant amount of fecal debris seen in the more distal colon. No evidence of abscess seen. The pelvic structures are suboptimally evaluated due to bilateral hip arthroplasties. Multilevel lumbar vacuum disc changes seen. IMPRESSION: 1. Stable left adrenal mass. 2. Sigmoid colonic diverticulosis. 3. Descending colonic abnormal thickening concerning for colitis or possible descending colonic circumferential mass. Correlate with direct visualization. POS: [facility]IA VICTORIA
[2018-08-26 23:28] LABS: Lactic Acid 1.6 mmol/L (0.5-2.2)
[2018-08-27 00:15] VITALS: BMI 23.0
--- NOTE | 2018-08-27 02:59 | HP ---
PRIMARY CARE DOCTOR: CODE STATUS: Full code. TIME OF EVALUATION: 10:12 p.m. CHIEF COMPLAINT: Near syncope. HISTORY OF PRESENT ILLNESS: This is a 73-year-old female patient with past medical history of arrhythmias, atrial fibrillation, hypothyroidism, esophageal spasm, hypertension, and TIA x2. The patient came to the hospital after having an episode of near syncope. The patient reported that she has severe abdominal cramping, lightheadedness that she felt that she was going to pass out, so she laid down on the floor and called for help. Symptoms have gotten much better by itself. She had associated swellings, symptoms were reported as moderate and intermittent. REVIEW OF SYSTEMS: CONSTITUTIONAL: No fever or chills. The patient reported generalized weakness. RESPIRATORY: No cough, sputum production, or shortness of breath. CARDIOVASCULAR: No chest pain or palpitation. GASTROINTESTINAL: No nausea, no vomiting or diarrhea. The patient has abdominal pain. AUT[employer]IVE [employer]S SPECIALIST: Dizziness, near-syncope, headache, feeling lightheaded. GENITOURINARY: No burning on urination. EXTREMITIES: No leg swelling. All other systems were reviewed and negative except for the findings mentioned above. PAST MEDICAL HISTORY: As mentioned in the HPI. PAST SURGICAL HISTORY: Hysterectomy, skin cancer removal from the face, appendectomy, orthopedic surgery, bilateral hip replacement, and back surgery. PSYCHIATRIC HISTORY: Includes anxiety and depression. SOCIAL HISTORY: The patient currently uses tobacco. No alcohol. No drugs. FAMILY HISTORY: Reviewed, noncontributory for current presentation. KNOWN ALLERGIES: Meperidine, Motrin, sulfa. REPORTED MEDICATIONS: 1. Levothyroxine. 2. Lisinopril/hydrochlorothiazide. 3. Protonix. 4. Aspirin. 5. Tramadol. 6. Duloxetine. PHYSICAL EXAMINATION: VITAL SIGNS: On presentation, blood pressure 114/75 with heart rate 92, respiratory rate was 16, temperature 94.6, and oxygen saturation was 94%. GENERAL APPEARANCE: The patient is alert, oriented, not in acute distress. HEENT: Eyes, normal conjunctivae. Moist oral mucosa. Anicteric. No JVD. RESPIRATORY: Bilateral air entry. No rales or wheezes. Symmetric expansion. CARDIOVASCULAR: Normal rate, regular rhythm. No murmurs. No gallop. No edema. ABDOMEN: Soft. Normal bowel sounds. The patient has abdominal tenderness. SKIN: Warm, intact. No pallor. No rash. No redness. EXTREMITIES: Peripheral pulses are present. Capillary refill seems to be intact. NEUROLOGIC: No evidence of any new focal weakness. Baseline speech. Cranial nerves seems to be intact. PSYCHIATRIC: The patient is in good mood. No anxiety. Optimal judgment. IMAGING STUDIES: EKG was reviewed, the patient has normal sinus rhythm with a rate of 97, [place] 140, QRS 94, QT corrected 530, possible left atrial enlargement, right superior axis deviation, pulmonary disease pattern with incomplete RBBB, prolonged QT. Chest x-ray was reviewed. The patient has unremarkable AP view chest. Abdomen and pelvis CT was reviewed. The patient has a stable left adrenal mass, sigmoid colonic diverticulosis, descending colonic abnormal thickening concerning for colitis or possible descending colonic circumferential mass, correlate with direct visualization. LABORATORY DATA: Reviewed. The patient has white count 16.8, hemoglobin 14.8, MCV 96, platelet count 393, and neutrophils 85.3. Chemistry; sodium 140, potassium 4.1, chloride 104, carbon dioxide 25, anion gap 15, BUN 23, creatinine 1.07, GFR 50, glucose 129; lactic acid 2.1, came down to 1.6; calcium 10. Total bilirubin 0.5, AST 17, ALT 11, alkaline phosphatase 114. CK 86, troponin I was less than 0.010. Beta natriuretic peptide was normal. Lipase 24. TSH 1.3. Urine was negative. ASSESSMENT AND PLAN: The patient will be placed in the hospital with following medical problems: 1. Acute colitis: The patient will be started on antibiotics, we will follow treatment, we will give symptomatic treatment as well. 2. Possible colonic mass as seen on the CAT scan. We have consulted GI, the patient might need colonoscopy that could be arranged for outpatient unless otherwise specified by GI. 3. Hyperglycemia, no report of diabetes, no need for any acute intervention at this point, we will monitor. 4. History of atrial fibrillation, rate is controlled. We will reconcile home medications. 5. Hypothyroidism. Continue hormone replacement. 6. Uncontrolled hypertension. The patient presented with systolic blood pressure at 143 has come down to normal. We will reconcile home medications. Adjust treatment as needed. 7. Leukocytosis. White count 16.8, unclear etiology, could be possibly due to colitis. We will trend and follow in the morning. The patient is already on antibiotics for colitis. 8. Deep venous thrombosis prophylaxis. Walt ID: [id number]
[2018-08-27 06:08] LABS: #Basophils 0.1 thou/uL (0.0-0.2); #Eosinphils 0.1 thou/uL (0.0-0.7); #Lymphocytes 1.8 thou/uL (1.20-3.40); #Monocytes 0.7 thou/uL (0.11-0.59); %Basophils 0.6 % (0.0-1.0); %Eosinophils 0.7 % (0.0-10.0); %Lymphocytes 18.4 % (21.0-51.0); %Monocytes 7.5 % (0.0-10.0); %Neutrophils 72.9 % (42.0-75.0); Hemoglobin 12.6 g/dL (12.0-16.0); Mean Corpuscular HGB CONC 32.3 g/dL (32.0-36.0); Mean Corpuscular Volume 95.9 fL (78.0-98.0); Platelet Count 334 thou/uL (130-400); RBC Distribution Width 12.5 % (11.5-14.5); Red Blood Cell (RBC) Count 4.06 mill/uL (4.20-5.40); White Blood Cell (WBC) Count 9.7 thou/uL (4.8-10.8)
[2018-08-27 06:32] LABS: Anion Gap 13 mmol/L (10-20); BUN (Urea Nitrogen) 15 mg/dL (9.8-20.1); Calc. Creatinine Clearance 55 mL/min (70-130); Calcium 8.7 mg/dL (7.8-10.44); Carbon Dioxide 22 mmol/L (23-31); Chloride 108 mmol/L (98-107); Estimated GFR-MDRD 68; Glucose 94 mg/dL (83-110); Potassium 3.9 mmol/L (3.5-5.1); Sodium 139 mmol/L (136-145)
--- NOTE | 2018-08-27 08:54 | PRG ---
DATE OF SERVICE: 08/27/2018 SUBJECTIVE: The patient is seen and examined at the bedside. She feels significantly better. She still has some abdominal discomfort in the left lower abdomen. No nausea. No vomiting. She noticed some blood when she wipes herself. OBJECTIVE: VITAL SIGNS: Blood pressure is 102/61, pulse is 109, temperature is 97.8, respiratory rate is 16, O2 saturation is 95% on room air. HEENT: Head is atraumatic and normocephalic. Eyes are PERRLA. Sclerae are nonicteric. Oral mucosa is slightly dry. NECK: Supple. LUNGS: Clear. HEART: S1, S2 normal. No S3. No S4. No any murmur. ABDOMEN: Soft, slightly tender in the left lower abdomen. No guarding. No masses. Peristalsis sluggish. NEUROLOGICAL: She is alert and oriented x4. There is no any motor or sensory deficits present. Cranial nerves are intact. LABORATORY DATA: White count of 9.7, hemoglobin 12.6, hematocrit 38.9, and platelet count 334. Sodium of 139, potassium of 3.9, chloride 108, CO2 of 22, BUN 15, creatinine 0.82. The rest of chemistry within normal limits. IMPRESSION: 1. Colitis with suspicion for tumor in the colon based on the CT findings. 2. Left adrenal gland tumor, stable based on comparison to the previous CT a year ago. 3. Hyperglycemia. 4. History of atrial fibrillation. 5. Hypothyroidism. 6. Hypertension. PLAN: We are going to continue her current regimen with p.r.n. Zofran. It is unclear etiology of a colitis. The patient is going to be seen by Dr. Simental for GI evaluation and possible colonoscopy tomorrow morning or on outpatient basis based on her white count is down to normal range. Clinically, she is doing much better. DVT prophylaxis. Job ID: [id number]
[2018-08-27] MEDS ORDERED: Enoxaparin Sodium 40 MG/0.4 ML SYRINGE SC SCH (09:00)
[2018-08-27] MEDS: Sodium Chloride 0.9% 1,000 ML IV SCH (17:30)
[2018-08-28] MEDS: Sodium Chloride 0.9% 1,000 ML IV SCH ×2 (02:25→05:45)
[2018-08-28 08:04] VITALS: BP 143/83; TEMP 97.8
--- NOTE | 2018-08-28 10:47 | CON ---
DATE OF CONSULTATION: 08/27/2018 REASON FOR CONSULTATION: "Colitis, colon mass." HISTORY OF PRESENT ILLNESS: Ms. Vanegas is a pleasant 73-year-old female who yesterday was in normal state of health, in the afternoon she had been out running some errands and then felt like she had to go to the bathroom. She went to the bathroom and had some cramping and small stool, but then became weak with a feeling of sweating, diaphoresis, and some abdominal cramping. Ultimately, she felt she was going to pass out, so she laid down on the floor and called her neighbor who came and summoned EMS. Her blood pressure was apparently low in the 60s to 80s and they brought to the emergency room. The emergency room records are unavailable for review, but apparently she was given fluid resuscitation and she began to feel better. She had blood work that showed white count of 16,000 yesterday and hemoglobin of 14.8 with platelet count of 393. Her comp metabolic profile was notable for a BUN of 23 and creatinine 1.07. Liver function tests were normal. Lactic acid was 2.1. CK was 86. Troponins were normal. Lipase was normal. TSH was normal. She had a CAT scan of the abdomen and pelvis with contrast, showed some hepatic cyst 2.6 x 2.8 cm left adrenal lesion which is unchanged from June 2017. There is some thickening of the colon wall in the transverse colon and in the descending and sigmoid. The radiologist said there was possibly descending colon circumferential mass. After the patient was admitted, apparently she was given some antibiotics in the emergency room. Those were not continued on the floor. She is apparently given some IV fluids in the ER, but none since then. She is on a regular diet and had some soup today. She reports that she had a very liquidy diarrheal stool with severe cramping when she was in the emergency room last night yesterday, and then last night she had a little bit of stool and then she had 2 stools today, the 1st of which was mucousy some blood and the other had just some mucus, but no blood, both were associated with some cramps. Apparently, she is feeling much better and wants to go home. PAST MEDICAL HISTORY: 1. Prior history of peptic ulcer disease in 2016 with a large duodenal ulcer that bled. 2. History of stroke in 02/2017. 3. Hypertension. PAST SURGICAL HISTORY: 1. Skin cancer. 2. Appendectomy. 3. Orthopedic, bilateral hip replacement. 4. Hysterectomy. 5. Back surgery. 6. EGD in 2017 with large ulcer required control of bleeding and also in 2014. In 2014, she also had a colonoscopy that showed diverticulosis coli. SOCIAL HISTORY: She drank in the past, but is not for several years. She does smoke about 10 to 5 cigarettes per day. She does not use drugs. ALLERGIES: SHE REPORTS SHE IS ALLERGIC TO DEMEROL, SULFA, HONEY, AND IBUPROFEN. MEDICATIONS: Here; 1. Zofran. 2. Lovenox. 3. Tylenol. Home Medications; 1. Protonix. 2. Lisinopril. 3. Hydrochlorothiazide. 4. Synthroid. 5. Cymbalta. 6. Aspirin 81. 7. Xanax p.r.n. PHYSICAL EXAMINATION: GENERAL: She is resting comfortably in bed. She has no distress. She is alert and oriented to person, place, and time. VITAL SIGNS: Pulse is 106, blood pressure is 145/78, temperature is 98. HEENT: Oropharynx, slightly dry. Mucous membranes are pink and moist. NECK: Supple. LUNGS: Clear. HEART: Regular rate and rhythm. No rubs, gallops, or murmurs. ABDOMEN: Soft and nontender. There is no rebound. There is no guarding. Bowel sounds are positive. No bruits. EXTREMITIES: No clubbing, cyanosis, or edema. ASSESSMENT: Ms. Vanegas seems to have had an episode of acute colonic ischemia, distribution is transverse and descending sigmoid colon is proper, as well as the abrupt onset with cramping, diaphoresis, and watery stool followed by bloody stool and cramps. This is likely not infectious and was self-limited, might have been related to the initial low blood pressure. It may be related results of dehydration and the fact that she does smoke. Her BUN and creatinine were up a little bit from her baseline when she was admitted. Management is being more observation at this point in time. She received one antibiotic in the emergency room and antibiotics were of questionable benefit in ischemic colitis. This has definitely been a very mild bout thereof. RECOMMENDATION: I will give her IV fluids overnight. Let her eat, advance diet to regular. If she continues to improve, she can go home. I would hold off on endoscopy at this point in time unless her symptoms worsen, as she would be at increased risk for perforation with acute inflammation of the colon, and it is unlikely she has a colon mass as she had a normal colonoscopy with no evidence of polyps or lesions just 4 years ago in 2015. If she does fine tomorrow, she can go home early tomorrow morning, resume home medications and follow up with Dr. Aguirre in the outpatient setting in a few weeks just for re-evaluation. We will follow along with you. If she worsens, I will consider endoscopy here. Job ID: [id number]
--- NOTE | 2018-08-28 11:20 | DIS ---
DATE OF ADMISSION: 08/26/2018 DATE OF DISCHARGE: 08/28/2018 FINAL DIAGNOSES: 1. Colitis. 2. Left adrenal gland tumor stable on imaging. 3. Hyperglycemia, resolved. 4. History of atrial fibrillation, currently sinus rhythm. 5. Hypothyroidism. 6. Hypertension. ASSISTANT IN NURSING: Shan Simental MD, Gastroenterology Service. HOSPITAL COURSE: The patient was a 73-year-old female, who was admitted to the hospital with a near syncope. She developed severe abdominal cramping, lightheadedness, and she felt like she is going to pass out. She was brought to the emergency room and during emergency room evaluation, her labs showed white count elevated at 16.8, hemoglobin 14.8, platelet count was 393 and she had 85.3 neutrophils. Chemistry was within normal limits. Lactic acid was 2.1 and followup level was 1.6. Troponin I was less than 0.010. Beta-natriuretic peptide was normal. Lipase was 24. TSH was 1.3 and urine was negative. The patient got admitted to the floor. Her white cell count went down to normal range the next day. She improved quickly. She had CT of the abdomen done, which showed descending colonic abnormal thickening concerning for colitis or possible descending colonic circumferential mass along with sigmoid colonic diverticulosis and stable left adrenal mass. The patient was seen by Dr. Simental, who recommends further followup on outpatient basis. The patient can be discharged home. PHYSICAL EXAMINATION: VITAL SIGNS: Her vitals; blood pressure is 148/84, pulse is 100, temperature is 98.2, respiratory rate is 18, and O2 saturation is 96% on room air. LUNGS: Clear. HEART: S1 and S2 normal. No S3. No S4. ABDOMEN: Soft and nontender. EXTREMITIES: No clubbing, cyanosis, or edema. DIET: She is discharged home on heart healthy diet. ACTIVITIES: As tolerated. DISPOSITION: Home. FOLLOWUP: We recommend her to follow up with primary care physician in 1 week. She needs to be evaluated for this left adrenal mass, which is stable according to the radiology report, but needs to be followed and she is going to follow with Dr. Aguirre for most likely outpatient colonoscopy. She is discharged in good condition. She is seen and examined before she is discharged and the discharge time is less than 30 minutes. MEDICATIONS: Medications are the same, which she was on prior to this hospitalization, which is; 1. Pantoprazole 40 mg once a day. 2. Lisinopril/hydrochlorothiazide 10/12.5 mg 1 tablet once a day. 3. Levothyroxine 75 mcg once a day. 4. Cymbalta 1 capsule twice a day. 5. Aspirin 81 mg once a day. 6. Alprazolam 0.25 mg twice a day p.r.n. 7. Fluticasone, which is Flonase 2 sprays to each nostril p.r.n. Job ID: [id number]
== END 2018-08-28 11:09 | disposition home or self-care (01) ==
LOC: ERS 17:17 → SURG B 21:55
PROVIDERS: ADMIT Hospitalist; ATTEND Hospitalist
DX: K52.9 Noninfective gastroenteritis and colitis, unspecified (principal); K57.30 Diverticulosis of large intestine without perforation or abscess without bleeding; D35.02 Benign neoplasm of left adrenal gland; E03.9 Hypothyroidism, unspecified; I48.91 Unspecified atrial fibrillation; I10 Essential (primary) hypertension; R73.9 Hyperglycemia, unspecified; F41.9 Anxiety disorder, unspecified; F32.9 Major depressive disorder, single episode, unspecified; F17.210 Nicotine dependence, cigarettes, uncomplicated; Z86.73 Personal history of transient ischemic attack (TIA), and cerebral infarction without residual deficits; Z79.82 Long term (current) use of aspirin; Z79.899 Other long term (current) drug therapy; Z88.2 Allergy status to sulfonamides; Z88.5 Allergy status to narcotic agent; Z88.8 Allergy status to other drugs, medicaments and biological substances; Z91.030 Bee allergy status
CPT/HCPCS: 36415; 51701; 71045; 74177; 80048; 80053; 81003; 82550; 83605; 83690; 83880; 84443; 84484; 85025; 87040; 87086; 87804; 93005; 96361; 96365; 96367; 96375; A4353; G0378; J1650; J1956; J2270; J2405; Q9966

== ENCOUNTER 2019-01-19 10:20 | Outpatient (CLI) | payer MEDICARE ==
--- NOTE | 2019-01-19 11:02 | RAD ---
XR Chest Pa Lat STANDARD HISTORY: Left chest wall pain COMPARISON: 08/26/2018 FINDINGS: The heart size is normal. The lungs are well expanded without focal areas of consolidation, pneumothorax or pleural effusions .there are degenerative changes in the spine. IMPRESSION: No radiographic evidence of acute cardiopulmonary process.
--- NOTE | 2019-01-19 13:01 | RAD ---
LEFT WRIST 3 VIEWS: Date: 01/19/19 HISTORY: Wrist pain status post fall. FINDINGS: There are some moderate arthritic changes of the first carpometacarpal joint space and triscaphe join t. Bones appear demineralized. There are no signs of fracture. IMPRESSION: No evidence of fracture. If trauma is suspected to the scaphoid, a follow-up in approximately 10 days would be recommended to exclude occult injury. POS: [facility]
== END 2019-01-19 10:21 | disposition home or self-care (01) ==
LOC: RAD-FRANK 10:20
PROVIDERS: ATTEND Nurse Practitioner Family
DX: M25.532 Pain in left wrist (principal); R07.89 Other chest pain
CPT/HCPCS: 71046

== ENCOUNTER 2019-02-22 14:48 | Outpatient (CLI) | payer MEDICARE ==
--- NOTE | 2019-02-22 15:47 | RAD ---
Lumbar spine 4 views: 02/22/2019 COMPARISON: None HISTORY: Prior surgery, fall, pain, radiculopathy FINDINGS: Frontal imaging demonstrates multilevel disc space narrowing with lateral osteophyte format ion and degenerative endplate change. Bilateral hip arthroplasties are present. Neutral lateral radiograph demonstrates anterolisthesis at L3-4 measuring 8 mm and at L4-5 measuring 1.5 cm. Flexion imaging demonstrates anterolisthesis at L3-4 measuring 1 cm and at L4-5 measuring 1.7 cm. Extension imaging demonstrates anterolisthesis at L3-4 measuring 1 cm and at L4-5 measuring 1.5 cm. There is atherosclerotic calcification of the abdominal aorta. The patient appears status post multilevel bilateral lumbar spine laminectomy. There is extensive brandon ateral multilevel facet hypertrophy throughout the lumbar spine. No acute fracture. IMPRESSION: Prominent lumbar spine degenerative change as detailed above.
== END 2019-02-22 14:49 | disposition home or self-care (01) ==
LOC: BICRAD 14:48
PROVIDERS: ATTEND Nurse Practitioner Family
DX: M43.16 Spondylolisthesis, lumbar region (principal); M47.816 Spondylosis without myelopathy or radiculopathy, lumbar region
CPT/HCPCS: 72120

== ENCOUNTER 2019-07-27 13:02 | Outpatient (CLI) | payer MEDICARE ==
--- NOTE | 2019-07-27 14:54 | MRI ---
MR the lumbar spine without contrast: 07/27/2019 History: Lumbar radiculopathy COMPARISON: 06/08/2016 TECHNIQUE: Multiplanar multisequence MR images were obtained of lumbar spine without IV contrast FINDINGS: On the basis of 5 lumbar type vertebral bodies, conus medullaris terminates at [id number] level. Sagittal STIR imaging demonstrates prominent edematous degenerative endplate change at the L4-5 level . T12-L1:There is disc space narrowing with disc desiccation. There is a right paracentral/right forami nal disc herniation with slight superior migration resulting in a mild degree of right lateral recess stenosis. Mild bilateral facet hypertrophy. No significant neural foraminal stenosis noted on the left. Mild right neural foraminal stenosis. L1-2:Disc space narrowing with disc desiccation and disc bulge. Small bilateral foraminal disc protru sions. Mild bilateral lateral recess stenosis. Bilateral facet hypertrophy with mild bilateral neural foraminal stenosis. L2-3:There is disc space narrowing with disc desiccation and mild disc bulge. Mild bilateral facet hy pertrophy. Mild bilateral neural foraminal stenosis. No significant central canal stenosis. L3-4:Anterolisthesis of L3 on L4 noted measuring approximately 7 mm. There is disc space narrowing wi th mild disc bulge. There is bilateral facet hypertrophy as well. Mild/moderate central canal stenosis. Moderate bilateral neural foraminal stenosis, left greater than right. L4-5:Severe degenerative endplate change. There is disc space narrowing with disc desiccation and mil d disc bulge. There is mild central canal stenosis with a moderate degree of right lateral recess stenosis. Prominent bilateral facet hypertrophy leads to moderate/severe bilateral neural foraminal s tenosis, right greater than left. Probable unilateral left-sided L4 pars defect. L5-S1:There is disc space narrowing with disc desiccation and degenerative endplate change. There is a disc bulge with a small central disc protrusion. No central canal stenosis. Moderate bilateral neural foraminal stenosis. Image retroperitoneal structures demonstrateno acute findings. Incidental note is made of an adrenal mass on the left measuring approximately 2.3 x 2.5 cm. Adrenal masses unchanged when compared to the 06/08/2016 examination. When compared to the prior exam, the severe degenerative endplate change at L4-5 and the associated a nterolisthesis of L4 on L5 has worsened significantly. Central canal stenosis at L4-5 has worsened as well. Interval worsening of bilateral neural foraminal stenosis noted at L4-5. The degenerative ch anges at the L3-4 level are fairly stable when compared to the prior exam. IMPRESSION: Prominent multilevel lumbar spine degenerative change as detailed above. Degenerative change at L4-5 has significantly worsened when compared to the 2016 examination.
== END 2019-07-27 13:03 | disposition home or self-care (01) ==
LOC: BICMRI 13:02
PROVIDERS: ATTEND Specialist
DX: M48.062 Spinal stenosis, lumbar region with neurogenic claudication (principal); M47.816 Spondylosis without myelopathy or radiculopathy, lumbar region
CPT/HCPCS: 72148

== ENCOUNTER 2022-08-01 10:03 | Observation (INO) | payer MEDICARE ==
[2022-08-01 11:19] LABS: #Basophils 0.1 thou/uL (0.0-0.2); #Lymphocytes 1.9 thou/uL (1.20-3.40); #Monocytes 1.1 thou/uL (0.11-0.59); %Basophils 0.4 % (0.0-1.0); %Eosinophils 0.3 % (0.0-10.0); %Lymphocytes 14.4 % (21.0-51.0); %Monocytes 8.1 % (0.0-10.0); %Neutrophils 76.8 % (42.0-75.0); Hemoglobin 14.9 g/dL (12.0-16.0); Mean Platelet Volume 7.8 fL (7.4-10.4); Platelet Count 344 10x3/uL (130-400); RBC Distribution Width 11.9 % (11.5-14.5); Red Blood Cell (RBC) Count 4.81 mill/uL (4.20-5.40)
[2022-08-01 11:36] LABS: ALT (SGPT) 15 U/L (8-55); AST (SGOT) 18 U/L (5-34); Albumin 4.2 g/dL (3.4-4.8); Alkaline Phosphatase 65 U/L (40-110); Anion Gap 15 mmol/L (10-20); BUN (Urea Nitrogen) 18 mg/dL (9.8-20.1); Bilirubin, Total 0.8 mg/dL (0.2-1.2); Calc. Creatinine Clearance 0 mL/min (70-130); Calcium 9.8 mg/dL (7.8-10.44); Carbon Dioxide 24 mmol/L (23-31); Chloride 102 mmol/L (98-107); Estimated GFR 72; Globulin 2.6 g/dL (2.4-3.5); Glucose 117 mg/dL (83-110); Lipase 16 U/L (8-78); Magnesium 2.4 mg/dL (1.6-2.6); Protein, Total 6.8 g/dL (5.8-8.1); Sodium 137 mmol/L (136-145)
[2022-08-01 14:13] LABS: Bilirubin Negative (Negative); Blood, Urine Negative (Negative); Clarity Clear (Clear); Glucose, Urine (Dipstick) Normal (Negative); Ketone, Urine Negative (Negative); Leukocyte Negative Leu/uL (Negative); Nitrite Negative (Negative); Protein, Urine (Dipstick) 20 mg/dL (Neg-Trace); Urobilinogen Normal mg/dL (Less than 2); pH, Urine 5.5 (5.0-9.0)
[2022-08-01 14:15] LABS: Specific Gravity, Urine Greater than 1.060 (1.002-1.036)
[2022-08-01] MEDS ORDERED: Acetaminophen 325 MG TAB PO PRN (18:45)
[2022-08-01] MEDS ORDERED: Sodium Chloride 0.9% 1,000 ML IV SCH (18:45)
[2022-08-01] MEDS ORDERED: Ondansetron ODT 4 MG TAB PO PRN (18:45)
[2022-08-01] MEDS ORDERED: Ondansetron PF 4 MG/2 ML Vial IVP PRN (18:45)
[2022-08-01 19:40] LABS: SARS-CoV-2 NAA Rapid Test Not Detected (NotDetected)
[2022-08-01] MEDS ORDERED: Dicyclomine 20 MG TAB ONE (21:36)
[2022-08-01] MEDS: Dicyclomine 10 MG CAP PO SCH (22:19)
[2022-08-01] MEDS ORDERED: Simethicone Chewable 80 MG TAB PO PRN (23:41)
[2022-08-02] MEDS ORDERED: Levothyroxine Sodium 75 MCG TAB PO SCH (06:00)
[2022-08-02 06:34] LABS: #Basophils 0.1 thou/uL (0.0-0.2); #Eosinphils 0.1 thou/uL (0.0-0.7); #Lymphocytes 2.1 thou/uL (1.20-3.40); #Monocytes 0.9 thou/uL (0.11-0.59); #Neutrophils 4.4 thou/uL (1.40-6.50); %Basophils 0.7 % (0.0-1.0); %Eosinophils 1.3 % (0.0-10.0); %Lymphocytes 28.2 % (21.0-51.0); %Monocytes 11.5 % (0.0-10.0); %Neutrophils 58.3 % (42.0-75.0); Hemoglobin 13.4 g/dL (12.0-16.0); Mean Corpuscular HGB CONC 33.3 g/dL (32.0-36.0); Mean Corpuscular Hemoglobin 32.5 pg (27.0-31.0); Mean Corpuscular Volume 97.7 fl (78.0-98.0); Mean Platelet Volume 7.6 fL (7.4-10.4); Platelet Count 293 10x3/uL (130-400); RBC Distribution Width 11.9 % (11.5-14.5); Red Blood Cell (RBC) Count 4.11 mill/uL (4.20-5.40); White Blood Cell (WBC) Count 7.5 10x3/uL (4.8-10.8)
[2022-08-02 06:53] LABS: Anion Gap 13 mmol/L (10-20); BUN (Urea Nitrogen) 12 mg/dL (9.8-20.1); Calc. Creatinine Clearance 0 mL/min (70-130); Calcium 8.8 mg/dL (7.8-10.44); Carbon Dioxide 23 mmol/L (23-31); Chloride 108 mmol/L (98-107); Estimated GFR 88; Glucose 101 mg/dL (83-110); Potassium 4.1 mmol/L (3.5-5.1); Sodium 140 mmol/L (136-145)
[2022-08-02] MEDS ORDERED: Polyethylene Glycol 3350 17 GM Packet PO SCH (09:00)
[2022-08-02] MEDS ORDERED: DULoxetine 30 MG CAP PO SCH (09:00)
[2022-08-02] MEDS: Dicyclomine 10 MG CAP PO SCH (11:00)
[2022-08-02 11:38] VITALS: BP 129/85; TEMP 98
== END 2022-08-02 13:17 | disposition home or self-care (01) ==
LOC: ERS 10:03 → ERHOLD 18:09
PROVIDERS: ADMIT Family Medicine; ATTEND Nurse Practitioner Family
DX: R10.30 Lower abdominal pain, unspecified (principal); R00.0 Tachycardia, unspecified; I48.0 Paroxysmal atrial fibrillation; R91.1 Solitary pulmonary nodule; E27.9 Disorder of adrenal gland, unspecified; E03.9 Hypothyroidism, unspecified; I10 Essential (primary) hypertension; F32.A Depression, unspecified; K63.9 Disease of intestine, unspecified; J44.9 Chronic obstructive pulmonary disease, unspecified; F17.210 Nicotine dependence, cigarettes, uncomplicated; R94.31 Abnormal electrocardiogram [ECG] [EKG]; Z86.73 Personal history of transient ischemic attack (TIA), and cerebral infarction without residual deficits; Z79.82 Long term (current) use of aspirin; Z79.890 Hormone replacement therapy; Z88.2 Allergy status to sulfonamides; Z88.5 Allergy status to narcotic agent; Z88.6 Allergy status to analgesic agent; Z91.030 Bee allergy status; Z20.822 Contact with and (suspected) exposure to COVID-19
CPT/HCPCS: 0240U; 51701; 71045; 71275; 74177; 80048; 81003; 83605; 83690; 83735; 84484; 85025; 93005; 96372; 99285; G0378 ×2; 36415; 80053; 84443; J1650; J7050